=== PATIENT | female | born 1960 | race Caucasian/White ===

== ENCOUNTER → 2016-10-09 | Outpatient (CLI) | payer OTHER, SELFPAY ==
[~2016-10-09] MED LIST: /AUGM875TA OR; /HCTZ25TA PO; ACET50TA PO; BACT800T5 PO; BACTDSTA PO; COLA50CA3 PO; HYDR25TA6 OR; HYDR25TAB PO; IBUP400T OR; IBUPOTC PO; LASI20TA PO; LISI40TAB PO; MICR10CA PO; MUPI2OI EXT; PERCOCET PO; TENO25TA PO; ZANTTAB PO; ZEST20TA8 PO; [UNRECOGNIZED DRUG - CODE] EXT; [UNRECOGNIZED DRUG - CODE] IV
--- NOTE | 2016-10-11 18:24 | SLEEPHOME ---
DATE OF STUDY: 10/09/2016 ORDERED BY: Brianna Flood Diagnostic home sleep testing ws performed due to concern for the obstructive sleep apnea syndrome in this patient with a history of excessive somnolence and comorbidities of hypertension. For testing a NOX-T3 respiratory monitoring device was utilized. Continuous record was made of pulse, oxygen saturation, air flow, chest and abdominal strain and body position. 7 hours and 59 minutes of data were reviewed. Of these, 5 hours and 13 minutes were marked as time in bed. During the interval marked time in bed there were 174 respiratory events identified of 10 seconds in duration or greater for a respiratory event index of 33.3. The events were primarily obstructive but mixed in central apneas were also seen. Baseline heart rate was 86 beats per minute. Pulse rate ranged 64 to 109 beats per minute. Baseline saturation 89%. Lowest oxygen saturation is 64%. Testing was performed in both the supine and non-supine positions. IMPRESSION: Abnormal home sleep testing with repetitive respirator events and oxygen desaturations to 64% with a respiratory event index of 33.3, is consistent with severe obstructive sleep apnea syndrome. RECOMMENDATION: The patient should be referred for formal sleep evaluation with in laboratory pressure titration.
== END ==
LOC: M SLEEP HO 09:42
PROVIDERS: ATTEND Nurse Practitioner Adult Health
DX: G47.30 Sleep apnea, unspecified (principal)

== ENCOUNTER → 2016-11-05 | Outpatient (REF) | payer SELFPAY, OTHER | LOC: M LAB REF 09:55 | PROVIDERS: ATTEND Physician Assistant Medical | DX: B97.89 Other viral agents as the cause of diseases classified elsewhere (principal) ==

== ENCOUNTER 2016-11-08 05:36 | Emergency (ER) | payer OTHER, SELFPAY ==
[2016-11-08] MEDS ORDERED: ONDANSETRON 4 MG ORAL DISINTEGRATING TAB (S0181) As Ordered ONE (07:30)
[2016-11-08] MEDS ORDERED: ALBUTEROL SULFATE 2.5 MG/0.5 ML INH NEB SOLN As Ordered ONE (07:45)
--- NOTE | 2016-11-08 08:05 | REP ---
PA and lateral chest: Comparison is 05/18/2016. A huge hiatal hernia containing multiple air-fluid levels is again identified. Lung harris are clear. Cardiac size is mildly enlarged. The hari, mediastinum, and bony thorax are unremarkable. Signed by Watson Kenny MD 11/08/2016 07:56 A
--- NOTE | 2016-11-08 08:33 | EDDOCDS ---
Nurse's Notes [facility] Name: Heidy Bolivar Age: 56 yrs Sex: Female : 1960 Arrival Date: 11/08/2016 Time: 05:36 Bed 7 Private MD: Diagnosis: Nausea;Influenza due to unidentified influenza virus-POSITIVE AT PRIOR URGENT CARE VISIT;Cough;Myalgia Presentation: 11/08 05:43 Presenting complaint: Patient states: dx with flu at urgent care, reports not feeling af2 any better, generalized body aches. Suicide/Homicide risk assessment- the patient denies having any suicidal and/or homicidal ideations and does not present with any other emotional, behavioral or mental health complaints. Status: Patient is not a extension service supervisor or dependent. Transition of care: patient was not received from another setting of care. 05:43 Acuity: MELL Level 4 af2 05:43 Method Of Arrival: Walkin/Carried/Asstd af2 Triage Assessment: 05:46 General: Appears in no apparent distress, Behavior is cooperative. Pain: Location: af2 generalized Pain currently is 7 out of 10 on a pain scale. Pt Declines HIV testing. Respiratory: Airway is patent Respiratory effort is even, unlabored. Derm: Skin is normal. Historical: - Allergies: No known drug Allergies; - Home Meds: 1. hydrochlorothiazide 25 mg Oral tab 1 tab once daily 2. lisinopril 40 mg oral tab 1 tab once daily 3. ibuprofen 400 mg Oral tab 2 tabs 4 times per day 4. Augmentin 875-125 mg Oral tab 1 tab every 12 hours 5. omeprazole 20 mg Oral TbEC daily - PMHx: Endometriosis; Hypertension; - PSHx: ; - Social history: Smoking status: Patient states was never smoker of tobacco. No barriers to communication noted, The patient speaks fluent Albanian. - Family history: Not pertinent. - : The pt / caregiver states he / she is not on anticoagulants. Home medication list is obtained from the patient. - Exposure Risk Screening:: None identified. Screenin:13 Screening information is obtained from the patient. Fall risk: No risks identified. jmk Assistance ADL's: requires no assistance with activities of daily living. Abuse/DV Screen: The patient / caregiver reports he/she is: not in a situation that causes fear, pain or injury. Nutritional screening: No deficits noted. Advance Directives: Currently, there is There is no active DNR order. There is no living will. There is no Power of Bill Board Poster. Advance directive information has not previously been placed in an [facility] medical record. home support is adequate. Assessment: 07:10 General: Appears SKIN WARM AND DRY COLOR SATISFACTORY. MOIST PINK ORAL MUCOSA. WITHOUT jmk RESP DISTRESS. CHEST cta. + NASAL CONGESTION. overall body aches. Vital Signs: 05:46 BP 104 / 61 RA Sitting (auto/); Pulse 90; Resp 18 S; Temp 98.2(TE); Pulse Ox 95% on af2 R/A; Weight 117.93 kg (R); Height 5 ft. 3 in. (160.02 cm) (R); Pain 7/10; 08:27 BP 110 / 61; Pulse 88; Resp 16; Temp 98.3; Pulse Ox 98% ; jmk 05:46 Body Mass Index 46.06 (117.93 kg, 160.02 cm) af2 Vitals: 05:46 Log In Time: November 08, 2016 at 05:36. af2 ED Course: 05:37 Patient visited by Juliann Walter Reg. hs2 05:37 Patient moved to Waiting hs2 05:42 Patient moved to Triage 1 af2 05:43 Dori Ayala RN is Primary Nurse. kas2 05:43 Triage Initiated af2 05:48 Patient visited by Cintia Marshall RN. af2 05:48 Patient moved to Waiting af2 07:03 Kelly Pena RN is Primary Nurse. nb2 07:03 Patient moved to 7 nb2 07:12 Shani Lee PA-C is PHCP. dt4 07:12 Barbara Aceves MD is Attending Physician. dt4 07:12 Patient visited by Shani Lee PA-C. dt4 07:13 The patient / caregiver is instructed regarding the plan of care and ED course. jmk 07:14 Patient visited by Joselo Maldonado RN. jmk 08:05 Primary Nurse role handed off by Kelly Pena RN mlb1 08:05 Primary Nurse role handed off by Dori Ayala RN mlb1 08:12 Patient visited by Shani Lee PA-C. dt4 08:14 [facility] is Referral Physician. dt4 08:27 No IV's were initiated during this patient's visit. No procedures done that require k assistance. Administered Medications: 07:32 Drug: Ondansetron ODT 4 mg [ondansetron 4 mg disintegrating tablet (1 tabs)] Route: PO; jmk 07:59 Drug: Albuterol 2.5 mg [albuterol sulfate 2.5 mg/0.5 mL solution for nebulization (0.5 ac1 mL)] Route: Nebulizer; 08:00 Follow up: PT HAYLIE PROCEDURE WELL. BS-AUDABLE WHEEZING BEFORE AND AFTER TX. HARSH ASSISTANT FINANCE MANAGER ac1 COUGH. Intake: RT: 08:01 Initial Med Neb Given as ordered Patient was instructed and evaluated on procedure. ac1 08:04 Respiratory: Breath sounds with wheezes bilaterally. ac1 Order Results: There are currently no results for this order. Outcome: 08:15 Discharge ordered by Provider. dt4 08:27 Discharge Assessment: Patient awake, alert and oriented x 3. No cognitive and/or k functional deficits noted. Patient verbalized understanding of disposition instructions. patient administered narcotics - no. The following High Risk Discharge criteria are identified: None. Condition: good. Discharge instructions given to patient, Instructed on discharge instructions, follow up and referral plans. Demonstrated understanding of instructions, medications, Pt was receptive of discharge instructions/ teaching. Prescriptions given X 2. No special radiology studies were completed. Property :Personal belongings accompany Pt. 08:31 [facility] Signatures: Joselo Maldonado,RN ALLY camposk Shila Cee,RT RT ac1 Kiran Arita RN RN mlb1 Shani Lee, PA-C PA-C dt4 Cintia Marshall,RN RN af2 Juliann Walter, Reg Reg hs2 Dori AyalaRN RN kas2 Sue Graham2 MTDD
--- NOTE | 2016-11-08 08:33 | EDDOCDS ---
Physician Documentation [facility] Name: Heidy Bolivar Age: 56 yrs Sex: Female : 1960 Arrival Date: 11/08/2016 Time: 05:36 Bed 7 Private MD: Disposition: 11/08/16 08:15 Discharged to Home/Self Care. Impression: Nausea, Influenza due to unidentified influenza virus - POSITIVE AT PRIOR URGENT CARE VISIT, Cough, Myalgia. - Condition is Stable. - Discharge Instructions: Influenza Adult, Nausea, Adult, Cough, Adult. - Prescriptions for guaifenesin 100 mg/5 mL Oral liquid - take 10 milliliter by ORAL route every 4-6 hours As needed as needed; 120 milliliter. ZOFRAN ODT 4 mg Oral - dissolve 1 tablet by ORAL route 3-4 times daily As needed do not chew, do not swallow whole; 20 tablet. - Medication Reconciliation, Local Pharmacy Hours form. - Follow up: Emergency Department; When: As needed; Reason: Worsening of conditions. [facility]: [facility]; When: Call to arrange an appointment; Reason: Recheck today's complaints, Continuance of care, To establish care. - Problem is new. - Symptoms have improved. Historical: - Allergies: No known drug Allergies; - Home Meds: 1. hydrochlorothiazide 25 mg Oral tab 1 tab once daily 2. lisinopril 40 mg oral tab 1 tab once daily 3. ibuprofen 400 mg Oral tab 2 tabs 4 times per day 4. Augmentin 875-125 mg Oral tab 1 tab every 12 hours 5. omeprazole 20 mg Oral TbEC daily - PMHx: Endometriosis; Hypertension; - PSHx: ; - Social history: Smoking status: Patient states was never smoker of tobacco. No barriers to communication noted, The patient speaks fluent Latvian. - Family history: Not pertinent. - : The pt / caregiver states he / she is not on anticoagulants. Home medication list is obtained from the patient. - Exposure Risk Screening:: None identified. Vital Signs: 11/08 05:46 BP 104 / 61 RA Sitting (auto/); Pulse 90; Resp 18 S; Temp 98.2(TE); Pulse Ox 95% on af2 R/A; Weight 117.93 kg / 259.99 lbs (R); Height 5 ft. 3 in. (160.02 cm) (R); Pain 7/10; 08:27 BP 110 / 61; Pulse 88; Resp 16; Temp 98.3; Pulse Ox 98% ; jmk 05:46 Body Mass Index 46.06 (117.93 kg, 160.02 cm) af2 MDM: 07:24 Albuterol 2.5 mg Nebulizer once ordered. dt4 07:24 Call Respiratory ordered. dt4 07:24 Ondansetron ODT Oral Disintegrating Tablet 4 mg PO once ordered. dt4 07:24 Call Respiratory complete. jrd 07:24 ED course: PT STATES NO FLU VACCINE THIS SEASON. BEGAN FEELING ILL ON 11/03/16, WENT TO [facility]4 URGENT CARE AND TESTED POSITIVE FOR FLU. STATES TOOK TAMIFLU AND NOT FEELING ANY RELIEF. STATES HAS BEEN MISSING WORK BECAUSE OF GENERAL BODY ACHES, NAUSEA, DECREASED APPETITE. . 07:25 Chest, 2 View (pa\E\lat) Ordered. EDMS 07:52 Financial registration complete. mm15 08:12 ED course: PT ASKED IF SHE SHOULD CONTINUE TAKING THE MEDICATION URGENT CARE PRESCRIBED dt4 HER FOR THE FLU. SHOWS A BOTTLE OF AUGMENTIN, STATES SHE IS SUPPOSED TO TAKE THIS FOR 10 DAYS. ADVISED THIS IS NOT HELPFUL FOR THE FLU AND MAY BE ADDING TO HER NAUSEA. ADVISED TO STOP TAKING IT. PT STATES SHE BROUGHT THE WRONG BOTTLE AND THERE IS ANOTHER ONE AT HOME. ADVISED IF IT IS FOR TAMIFLU, IT IS TYPICALLY WRITTEN FOR 5 DAYS AND SHE SHOULD HAVE COMPLETED IT YESTERDAY. PT VOICED UNDERSTANDING. . Administered Medications: 07:32 Drug: Ondansetron ODT 4 mg [ondansetron 4 mg disintegrating tablet (1 tabs)] Route: PO; joann 07:59 Drug: Albuterol 2.5 mg [albuterol sulfate 2.5 mg/0.5 mL solution for nebulization (0.5 ac1 mL)] Route: Nebulizer; 08:00 Follow up: PT HAYLIE PROCEDURE WELL. BS-AUDABLE WHEEZING BEFORE AND AFTER TX. HARSH ERP IMPLEMENTATION CONSULTANT ac1 COUGH. Signatures: Dispatcher [employer] EDMS Joselo Maldonado,ALLY RN Shawna Mariano mm15 Shani Lee, PA-C PA-C dt4 Delmar Nguyễn, WAREHOUSE SUPERVISOR WAREHOUSE SUPERVISOR d Cintia Marshall RN RN af2 Jaye, Shila RT ac1 MTDD
--- NOTE | 2016-11-10 09:32 | EDDOCDS ---
Physician Documentation [facility] Name: Heidy Bolivar Age: 56 yrs Sex: Female : 1960 Arrival Date: 11/08/2016 Time: 05:36 Bed 7 Private MD: Disposition: 11/08/16 08:15 Discharged to Home/Self Care. Impression: Nausea, Influenza due to unidentified influenza virus - POSITIVE AT PRIOR URGENT CARE VISIT, Cough, Myalgia. - Condition is Stable. - Discharge Instructions: Influenza Adult, Nausea, Adult, Cough, Adult. - Prescriptions for guaifenesin 100 mg/5 mL Oral liquid - take 10 milliliter by ORAL route every 4-6 hours As needed as needed; 120 milliliter. ZOFRAN ODT 4 mg Oral - dissolve 1 tablet by ORAL route 3-4 times daily As needed do not chew, do not swallow whole; 20 tablet. - Medication Reconciliation, Local Pharmacy Hours form. - Follow up: Emergency Department; When: As needed; Reason: Worsening of conditions. Follow [facility]: [facility]; When: Call to arrange an appointment; Reason: Recheck today's complaints, Continuance of care, To establish care. - Problem is new. - Symptoms have improved. Historical: - Allergies: No known drug Allergies; - Home Meds: 1. hydrochlorothiazide 25 mg Oral tab 1 tab once daily 2. lisinopril 40 mg oral tab 1 tab once daily 3. ibuprofen 400 mg Oral tab 2 tabs 4 times per day 4. Augmentin 875-125 mg Oral tab 1 tab every 12 hours 5. omeprazole 20 mg Oral TbEC daily - PMHx: Endometriosis; Hypertension; - PSHx: ; - Social history: Smoking status: Patient states was never smoker of tobacco. No barriers to communication noted, The patient speaks fluent [place] Citizen. - Family history: Not pertinent. - : The pt / caregiver states he / she is not on anticoagulants. Home medication list is obtained from the patient. - Exposure Risk Screening:: None identified. Vital Signs: 11/08 05:46 BP 104 / 61 RA Sitting (auto/); Pulse 90; Resp 18 S; Temp 98.2(TE); Pulse Ox 95% on af2 R/A; Weight 117.93 kg / 259.99 lbs (R); Height 5 ft. 3 in. (160.02 cm) (R); Pain 7/10; 08:27 BP 110 / 61; Pulse 88; Resp 16; Temp 98.3; Pulse Ox 98% ; jmk 05:46 Body Mass Index 46.06 (117.93 kg, 160.02 cm) af2 MDM: 07:24 Albuterol 2.5 mg Nebulizer once ordered. dt4 07:24 Call Respiratory ordered. dt4 07:24 Ondansetron ODT Oral Disintegrating Tablet 4 mg PO once ordered. dt4 07:24 Call Respiratory complete. jrd 07:24 ED course: PT STATES NO FLU VACCINE THIS SEASON. BEGAN FEELING ILL ON 11/03/16, WENT TO dt4 URGENT CARE AND TESTED POSITIVE FOR FLU. STATES TOOK TAMIFLU AND NOT FEELING ANY RELIEF. STATES HAS BEEN MISSING WORK BECAUSE OF GENERAL BODY ACHES, NAUSEA, DECREASED APPETITE. . 07:25 Chest, 2 View (pa\E\lat) Ordered. EDMS 07:52 Financial registration complete. mm15 08:12 ED course: PT ASKED IF SHE SHOULD CONTINUE TAKING THE MEDICATION URGENT CARE PRESCRIBED dt4 HER FOR THE FLU. SHOWS A BOTTLE OF AUGMENTIN, STATES SHE IS SUPPOSED TO TAKE THIS FOR 10 DAYS. ADVISED THIS IS NOT HELPFUL FOR THE FLU AND MAY BE ADDING TO HER NAUSEA. ADVISED TO STOP TAKING IT. PT STATES SHE BROUGHT THE WRONG BOTTLE AND THERE IS ANOTHER ONE AT HOME. ADVISED IF IT IS FOR TAMIFLU, IT IS TYPICALLY WRITTEN FOR 5 DAYS AND SHE SHOULD HAVE COMPLETED IT YESTERDAY. PT VOICED UNDERSTANDING. . 08:35 [facility] Payment Agreement was scanned into [employer] and attached to record. mm15 11/10 08:24 T-Sheet-- Draft Copy was scanned into [employer] and attached to record. lg 08:25 Radiology Report was scanned into [employer] and attached to record. lg Administered Medications: 11/08 07:32 Drug: Ondansetron ODT 4 mg [ondansetron 4 mg disintegrating tablet (1 tabs)] Route: PO; jmk 07:59 Drug: Albuterol 2.5 mg [albuterol sulfate 2.5 mg/0.5 mL solution for nebulization (0.5 ac1 mL)] Route: Nebulizer; 08:00 Follow up: PT HAYLIE PROCEDURE WELL. BS-AUDABLE WHEEZING BEFORE AND AFTER TX. HARSH JUNIOR PROGRAMMER ac1 COUGH. Signatures: Dispatcher [employer] EDJoselo Abraham,RN RN bethk Jeremias Jaffe, Andre Reg lg Shawna Park mm15 Shani Lee PA-C PA-C dt4 Delmar Nguyễn, SIM FACIALIST jrd Cintia MarshallRN RN af2 Shila Cee RT ac1 The chart was reviewed and I authenticate all verbal orders and agree with the evaluation and treatment provided.Attachments: 08:35 [facility] Payment Agreement mm15 11/10 08:24 T-Sheet-- Draft Copy lg Chart Complete MTDD
--- NOTE | 2016-11-10 09:32 | EDDOCDS ---
Physician Documentation [facility] Name: Heidy Bolivar Age: 56 yrs Sex: Female : 1960 Arrival Date: 11/08/2016 Time: 05:36 Bed 7 Private MD: Disposition: 11/08/16 08:15 Discharged to Home/Self Care. Impression: Nausea, Influenza due to unidentified influenza virus - POSITIVE AT PRIOR URGENT CARE VISIT, Cough, Myalgia. - Condition is Stable. - Discharge Instructions: Influenza Adult, Nausea, Adult, Cough, Adult. - Prescriptions for guaifenesin 100 mg/5 mL Oral liquid - take 10 milliliter by ORAL route every 4-6 hours As needed as needed; 120 milliliter. ZOFRAN ODT 4 mg Oral - dissolve 1 tablet by ORAL route 3-4 times daily As needed do not chew, do not swallow whole; 20 tablet. - Medication Reconciliation, Local Pharmacy Hours form. - Follow up: Emergency Department; When: As needed; Reason: Worsening of conditions. Follow [facility]: [facility]; When: Call to arrange an appointment; Reason: Recheck today's complaints, Continuance of care, To establish care. - Problem is new. - Symptoms have improved. Historical: - Allergies: No known drug Allergies; - Home Meds: 1. hydrochlorothiazide 25 mg Oral tab 1 tab once daily 2. lisinopril 40 mg oral tab 1 tab once daily 3. ibuprofen 400 mg Oral tab 2 tabs 4 times per day 4. Augmentin 875-125 mg Oral tab 1 tab every 12 hours 5. omeprazole 20 mg Oral TbEC daily - PMHx: Endometriosis; Hypertension; - PSHx: ; - Social history: Smoking status: Patient states was never smoker of tobacco. No barriers to communication noted, The patient speaks fluent Thai. - Family history: Not pertinent. - : The pt / caregiver states he / she is not on anticoagulants. Home medication list is obtained from the patient. - Exposure Risk Screening:: None identified. Vital Signs: 11/08 05:46 BP 104 / 61 RA Sitting (auto/); Pulse 90; Resp 18 S; Temp 98.2(TE); Pulse Ox 95% on af2 R/A; Weight 117.93 kg / 259.99 lbs (R); Height 5 ft. 3 in. (160.02 cm) (R); Pain 7/10; 08:27 BP 110 / 61; Pulse 88; Resp 16; Temp 98.3; Pulse Ox 98% ; jmk 05:46 Body Mass Index 46.06 (117.93 kg, 160.02 cm) af2 MDM: 07:24 Albuterol 2.5 mg Nebulizer once ordered. dt4 07:24 Call Respiratory ordered. dt4 07:24 Ondansetron ODT Oral Disintegrating Tablet 4 mg PO once ordered. dt4 07:24 Call Respiratory complete. jrd 07:24 ED course: PT STATES NO FLU VACCINE THIS SEASON. BEGAN FEELING ILL ON 11/03/16, WENT TO dt4 URGENT CARE AND TESTED POSITIVE FOR FLU. STATES TOOK TAMIFLU AND NOT FEELING ANY RELIEF. STATES HAS BEEN MISSING WORK BECAUSE OF GENERAL BODY ACHES, NAUSEA, DECREASED APPETITE. . 07:25 Chest, 2 View (pa\E\lat) Ordered. EDMS 07:52 Financial registration complete. mm15 08:12 ED course: PT ASKED IF SHE SHOULD CONTINUE TAKING THE MEDICATION URGENT CARE PRESCRIBED dt4 HER FOR THE FLU. SHOWS A BOTTLE OF AUGMENTIN, STATES SHE IS SUPPOSED TO TAKE THIS FOR 10 DAYS. ADVISED THIS IS NOT HELPFUL FOR THE FLU AND MAY BE ADDING TO HER NAUSEA. ADVISED TO STOP TAKING IT. PT STATES SHE BROUGHT THE WRONG BOTTLE AND THERE IS ANOTHER ONE AT HOME. ADVISED IF IT IS FOR TAMIFLU, IT IS TYPICALLY WRITTEN FOR 5 DAYS AND SHE SHOULD HAVE COMPLETED IT YESTERDAY. PT VOICED UNDERSTANDING. . 08:35 [facility] Payment Agreement was scanned into [employer] and attached to record. mm15 11/10 08:24 T-Sheet-- Draft Copy was scanned into [employer] and attached to record. lg 08:25 Radiology Report was scanned into [employer] and attached to record. lg Administered Medications: 11/08 07:32 Drug: Ondansetron ODT 4 mg [ondansetron 4 mg disintegrating tablet (1 tabs)] Route: PO; jmk 07:59 Drug: Albuterol 2.5 mg [albuterol sulfate 2.5 mg/0.5 mL solution for nebulization (0.5 ac1 mL)] Route: Nebulizer; 08:00 Follow up: PT HAYLIE PROCEDURE WELL. BS-AUDABLE WHEEZING BEFORE AND AFTER TX. HARSH ELECTRONICS ENGINEERING MANAGER ac1 COUGH. Signatures: Dispatcher [employer] EDJoselo Abraham,RN RN bethk Jeremias Jaffe, Andre Reg lg Shawna Park mm15 Shani Lee PA-C PA-C dt4 Delmar Nguyễn, SIM SOFTWARE APPLICATION TESTER jrd Cintia MarshallRN RN af2 Shila Cee RT ac1 The chart was reviewed and I authenticate all verbal orders and agree with the evaluation and treatment provided.Attachments: 08:35 [facility] Payment Agreement mm15 11/10 08:24 T-Sheet-- Draft Copy lg Chart Complete MTDD
--- NOTE | 2016-11-10 09:33 | EDDOCDS ---
Nurse's Notes [facility] Name: Heidy Bolivar Age: 56 yrs Sex: Female : 1960 Arrival Date: 11/08/2016 Time: 05:36 Bed 7 Private MD: Diagnosis: Nausea;Influenza due to unidentified influenza virus-POSITIVE AT PRIOR URGENT CARE VISIT;Cough;Myalgia Presentation: 11/08 05:43 Presenting complaint: Patient states: dx with flu at urgent care, reports not feeling af2 any better, generalized body aches. Suicide/Homicide risk assessment- the patient denies having any suicidal and/or homicidal ideations and does not present with any other emotional, behavioral or mental health complaints. Status: Patient is not a senior professional services consultant or dependent. Transition of care: patient was not received from another setting of care. 05:43 Acuity: MELL Level 4 af2 05:43 Method Of Arrival: Walkin/Carried/Asstd af2 Triage Assessment: 05:46 General: Appears in no apparent distress, Behavior is cooperative. Pain: Location: af2 generalized Pain currently is 7 out of 10 on a pain scale. Pt Declines HIV testing. Respiratory: Airway is patent Respiratory effort is even, unlabored. Derm: Skin is normal. Historical: - Allergies: No known drug Allergies; - Home Meds: 1. hydrochlorothiazide 25 mg Oral tab 1 tab once daily 2. lisinopril 40 mg oral tab 1 tab once daily 3. ibuprofen 400 mg Oral tab 2 tabs 4 times per day 4. Augmentin 875-125 mg Oral tab 1 tab every 12 hours 5. omeprazole 20 mg Oral TbEC daily - PMHx: Endometriosis; Hypertension; - PSHx: ; - Social history: Smoking status: Patient states was never smoker of tobacco. No barriers to communication noted, The patient speaks fluent Slovak. - Family history: Not pertinent. - : The pt / caregiver states he / she is not on anticoagulants. Home medication list is obtained from the patient. - Exposure Risk Screening:: None identified. Screenin:13 Screening information is obtained from the patient. Fall risk: No risks identified. jmk Assistance ADL's: requires no assistance with activities of daily living. Abuse/DV Screen: The patient / caregiver reports he/she is: not in a situation that causes fear, pain or injury. Nutritional screening: No deficits noted. Advance Directives: Currently, there is There is no active DNR order. There is no living will. There is no Power of Computer Tape Librarian. Advance directive information has not previously been placed in an [facility] medical record. home support is adequate. Assessment: 07:10 General: Appears SKIN WARM AND DRY COLOR SATISFACTORY. MOIST PINK ORAL MUCOSA. WITHOUT jmk RESP DISTRESS. CHEST cta. + NASAL CONGESTION. overall body aches. Vital Signs: 05:46 BP 104 / 61 RA Sitting (auto/); Pulse 90; Resp 18 S; Temp 98.2(TE); Pulse Ox 95% on af2 R/A; Weight 117.93 kg (R); Height 5 ft. 3 in. (160.02 cm) (R); Pain 7/10; 08:27 BP 110 / 61; Pulse 88; Resp 16; Temp 98.3; Pulse Ox 98% ; jmk 05:46 Body Mass Index 46.06 (117.93 kg, 160.02 cm) af2 Vitals: 05:46 Log In Time: November 08, 2016 at 05:36. af2 ED Course: 05:37 Patient visited by Juliann Walter Reg. hs2 05:37 Patient moved to Waiting hs2 05:42 Patient moved to Triage 1 af2 05:43 Dori Ayala RN is Primary Nurse. kas2 05:43 Triage Initiated af2 05:48 Patient visited by Cintia Marshall RN. af2 05:48 Patient moved to Waiting af2 07:03 Kelly Pena RN is Primary Nurse. nb2 07:03 Patient moved to 7 nb2 07:12 Shani Lee PA-C is PHCP. dt4 07:12 Barbara Aceves MD is Attending Physician. dt4 07:12 Patient visited by Shani Lee PA-C. dt4 07:13 The patient / caregiver is instructed regarding the plan of care and ED course. jmk 07:14 Patient visited by Joselo Maldonado RN. jmk 08:05 Primary Nurse role handed off by Kelly Pena RN mlb1 08:05 Primary Nurse role handed off by Dori Ayala RN mlb1 08:12 Patient visited by Shani Lee PA-C. dt4 08:14 [facility] is Referral Physician. dt4 08:27 No IV's were initiated during this patient's visit. No procedures done that require jmk assistance. 08:35 [facility] Payment Agreement was scanned into [employer] and attached to record. mm15 08:44 Chest, 2 View (pa\E\lat) Returned. EDMS 11/10 08:24 T-Sheet-- Draft Copy was scanned into [employer] and attached to record. lg 08:25 Radiology Report was scanned into [employer] and attached to record. lg Administered Medications: 11/08 07:32 Drug: Ondansetron ODT 4 mg [ondansetron 4 mg disintegrating tablet (1 tabs)] Route: PO; jmk 07:59 Drug: Albuterol 2.5 mg [albuterol sulfate 2.5 mg/0.5 mL solution for nebulization (0.5 ac1 mL)] Route: Nebulizer; 08:00 Follow up: PT HAYLIE PROCEDURE WELL. BS-AUDABLE WHEEZING BEFORE AND AFTER TX. [employer] MAINTENANCE ENGINEER ac1 COUGH. Intake: RT: 08:01 Initial Med Neb Given as ordered Patient was instructed and evaluated on procedure. ac1 08:04 Respiratory: Breath sounds with wheezes bilaterally. ac1 Order Results: Radiology Order: Chest, 2 View (pa\E\lat) Test: Chest, 2 View (pa\E\lat) REASON FOR EXAMINATION: pos flu, cough, wheezing; PA and lateral chest:; ; Comparison is 05/18/2016.; ; A huge hiatal hernia containing multiple air-fluid levels is again identified.; ; Lung harris are clear. Cardiac size is mildly enlarged. The hari, mediastinum,; and bony thorax are unremarkable.; ; ; Signed by; Watson Kenny MD 11/08/2016 07:56 A; Outcome: 08:15 Discharge ordered by Provider. dt4 08:27 Discharge Assessment: Patient awake, alert and oriented x 3. No cognitive and/or jmk functional deficits noted. Patient verbalized understanding of disposition instructions. patient administered narcotics - no. The following High Risk Discharge criteria are identified: None. Condition: good. Discharge instructions given to patient, Instructed on discharge instructions, follow up and referral plans. Demonstrated understanding of instructions, medications, Pt was receptive of discharge instructions/ teaching. Prescriptions given X 2. No special radiology studies were completed. Property :Personal belongings accompany Pt. 08:31 Patient left the ED. ramesh Signatures: Dispatcher [employer] EDMS Joselo Maldonado,RN RN Jeremias Santa, Reg Reg lg Shila Cee,RT RT ac1 Kiran Arita RN RN mlb1 Shawna Park mm15 Shani Lee, PA-C PA-C dt4 Cintia MarshallRN RN af2 Juliann Walter, Reg Reg hs2 Dori Ayala RN RN kas2 Sue Graham nb2 Chart Complete MTDD
== END 2016-11-08 08:31 | disposition home or self-care (01) ==
LOC: M ED 05:36
DX: J11.1 Influenza due to unidentified influenza virus with other respiratory manifestations (principal); M79.1 Myalgia; R05 Cough; R11.0 Nausea; N80.9 Endometriosis, unspecified; I10 Essential (primary) hypertension; Z79.899 Other long term (current) drug therapy

== ENCOUNTER → 2018-01-04 | Outpatient (CLI) | payer OTHER | LOC: M RAD 10:43 | DX: I10 Essential (primary) hypertension (principal) | CPT/HCPCS: 76775 ==

== ENCOUNTER → 2018-01-29 | Outpatient (CLI) | payer OTHER | LOC: M WHC 08:45 | DX: Z12.31 Encounter for screening mammogram for malignant neoplasm of breast (principal); Z80.3 Family history of malignant neoplasm of breast; Z78.0 Asymptomatic menopausal state | CPT/HCPCS: 77067 ==

== ENCOUNTER 2018-02-17 16:03 | Inpatient (IN) | payer OTHER ==
[2018-02-17 16:54] LABS: BASO % 0.5 % (0.0-1.0); EOS # 0.2 10^3/uL (0.0-0.50); EOS % 2.3 % (0.0-3.0); HEMATOCRIT 41.4 % (36.0-47.0); HEMOGLOBIN 13.4 g/dl (12.0-15.5); IMMATURE GRANULOCYTE % 0.4 % (0-3.0); LYMPH # 2.1 10^3/uL (1.5-4.5); LYMPH % 28.1 % (24.0-44.0); MEAN CORPUSCULAR HEMOGLOBIN 28.3 pg (27.0-33.0); MEAN CORPUSCULAR HGB CONC 32.4 g/dl (32.0-36.5); MEAN CORPUSCULAR VOLUME 87.3 fl (80.0-96.0); MONO # 0.5 10^3/uL (0.0-0.8); MONO % 6.8 % (0.0-5.0); NEUTROPHILS # 4.5 10^3/uL (1.8-7.7); NEUTROPHILS % 61.9 % (36.0-66.0); PLATELET COUNT, AUTOMATED 316 10^3/uL (150-450); RED BLOOD COUNT 4.74 10^6/uL (4.00-5.40); RED CELL DISTRIBUTION WIDTH 13.2 % (11.5-14.5); WHITE BLOOD COUNT 7.3 10^3/uL (4.0-10.0)
[2018-02-17 17:01] LABS: INR 0.88
[2018-02-17 17:02] LABS: PARTIAL THROMBOPLASTIN TIME 29.2 SECONDS (26.8-37.9)
[2018-02-17 17:15] LABS: ANION GAP 6 MEQ/L (8-16); BLOOD UREA NITROGEN 22 MG/DL (7-18); CALCIUM LEVEL 8.7 MG/DL (8.5-10.1); CARBON DIOXIDE LEVEL 33 MEQ/L (21-32); CHLORIDE LEVEL 102 MEQ/L (98-107); CPK CREATINE PHOSPHOKINASE 189 U/L (26-192); CREATININE FOR GFR 0.86 MG/DL (0.55-1.30); FREE T4 0.86 NG/DL (0.76-1.46); GLOMERULAR FILTRATION RATE > 60.0 (>51); GLUCOSE, FASTING 117 MG/DL (70-100); PHOSPHORUS LEVEL 3.2 MG/DL (2.5-4.9); POTASSIUM SERUM 3.3 MEQ/L (3.5-5.1); SODIUM LEVEL 141 MEQ/L (136-145); TROPONIN I < 0.02 NG/ML (< 0.10)
[2018-02-17 17:21] LABS: CK-MB VALUE MASS 4.2 NG/ML (<3.6); MB/CK RELATIVE INDEX 2.22 (< OR =4)
[2018-02-17] MEDS: POTASSIUM CHLORIDE 10 MEQ SR TABLET PO (17:38)
[2018-02-17] MEDS: ASPIRIN 325 MG TAB PO (18:11)
[2018-02-17] MEDS ORDERED: ONDANSETRON 4MG/2ML VIAL (J2405) IV (19:00)
[2018-02-17 19:55] LABS: MAGNESIUM LEVEL 2.1 MG/DL (1.8-2.4)
[2018-02-17 20:22] LABS: ESTIMATED AVERAGE GLUCOSE 131 MG/DL (60-110); HEMOGLOBIN A1c 6.2 %
[2018-02-18 05:28] LABS: HEMATOCRIT 38.8 % (36.0-47.0); HEMOGLOBIN 12.6 g/dl (12.0-15.5); MEAN CORPUSCULAR HEMOGLOBIN 28.3 pg (27.0-33.0); MEAN CORPUSCULAR HGB CONC 32.5 g/dl (32.0-36.5); MEAN CORPUSCULAR VOLUME 87.2 fl (80.0-96.0); PLATELET COUNT, AUTOMATED 268 10^3/uL (150-450); RED BLOOD COUNT 4.45 10^6/uL (4.00-5.40); RED CELL DISTRIBUTION WIDTH 13.2 % (11.5-14.5); WHITE BLOOD COUNT 4.7 10^3/uL (4.0-10.0)
[2018-02-18 06:06] LABS: ALBUMIN 3.1 GM/DL (3.2-5.2); ANION GAP 6 MEQ/L (8-16); BLOOD UREA NITROGEN 19 MG/DL (7-18); CALCIUM LEVEL 8.5 MG/DL (8.5-10.1); CARBON DIOXIDE LEVEL 29 MEQ/L (21-32); CHLORIDE LEVEL 106 MEQ/L (98-107); CHOLESTEROL LEVEL 187 MG/DL (<200); CHOLESTEROL RISK RATIO 2.397 (<5); CREATININE FOR GFR 0.64 MG/DL (0.55-1.30); GLOMERULAR FILTRATION RATE > 60.0 (>51); GLUCOSE, FASTING 97 MG/DL (70-100); HDL CHOLESTEROL 78 MG/DL (>40); LDL CHOLESTEROL 92.2 MG/DL (<100); NON-HDL-C 109 MG/DL; PHOSPHORUS LEVEL 3.3 MG/DL (2.5-4.9); POTASSIUM SERUM 3.6 MEQ/L (3.5-5.1); SODIUM LEVEL 141 MEQ/L (136-145); TRIGLYCERIDES LEVEL 84 MG/DL (<150)
[2018-02-18] MEDS: ASPIRIN 81 MG ENTERIC TAB PO (06:11)
[2018-02-18] MEDS: ENOXAPARIN 40 MG/0.4 ML SYRINGE (J1650) SC (09:03)
[2018-02-18] MEDS: ACETAMINOPHEN TAB 650MG DOSE (2X325MG) PO (09:03)
[2018-02-18] MEDS: SPIRONOLACTONE 25 MG TAB PO (09:04)
[2018-02-18] MEDS: hydroCHLOROthiazide 25 MG TAB PO (09:04)
[2018-02-18] MEDS: amLODIPine 5 MG TAB PO (09:07)
[2018-02-18] MEDS: IBUPROFEN 800 MG TAB PO (10:44)
[2018-02-20 00:07] LABS: Lyme Disease IgG/IgM Antibodie <0.91 ISR (0.00-0.90); Lyme Disease IgM Ab Quantitati <0.80 index (0.00-0.79)
== END 2018-02-18 16:03 | disposition home or self-care (01) | DRG 47 ==
LOC: M ED 16:03 → M ED INP 18:51 → M PCU 20:30
DX: G45.9 Transient cerebral ischemic attack, unspecified (principal); Z68.42 Body mass index [BMI] 45.0-49.9, adult; I10 Essential (primary) hypertension; G62.9 Polyneuropathy, unspecified; E66.01 Morbid (severe) obesity due to excess calories; E78.5 Hyperlipidemia, unspecified; I87.2 Venous insufficiency (chronic) (peripheral); E87.6 Hypokalemia; R60.0 Localized edema; Z79.1 Long term (current) use of non-steroidal anti-inflammatories (NSAID); Z79.899 Other long term (current) drug therapy

== ENCOUNTER → 2018-05-11 | Outpatient (CLI) | payer OTHER ==
[2018-05-11 09:41] LABS: D-DIMER QUANT 343.7 ng/ml (<500)
== END ==
LOC: M LAB 09:03
DX: R60.9 Edema, unspecified (principal)
CPT/HCPCS: 36415

== ENCOUNTER → 2018-05-28 | Outpatient (CLI) | payer OTHER ==
[2018-05-28 11:10] LABS: AMORPHOUS SEDIMENT SMALL (NEGATIVE); APPEARANCE, URINE HAZY (CLEAR); BACTERIA, URINE AUTO 1+ (NEGATIVE); BILIRUBIN, URINE AUTO NEGATIVE (NEGATIVE); BLOOD, URINE BLOOD NEGATIVE (NEGATIVE); COLOR, URINE YELLOW (YELLOW); GLUCOSE, URINE (UA) AUTO NEGATIVE (NEGATIVE); KETONE, URINE AUTO TRACE mg/dL (NEGATIVE); LEUKOCYTE ESTERASE, URINE AUTO 1+ (NEGATIVE); MUCUS, URINE SMALL (NEGATIVE); NITRITE, URINE AUTO NEGATIVE (NEGATIVE); PROTEIN, URINE AUTO 1+ mg/dL (NEGATIVE); RBC, URINE AUTO 4 /HPF (0-3); SPECIFIC GRAVITY URINE AUTO 1.034 (1.002-1.035); SQUAMOUS EPITHELIAL CELL UR AU 8 /HPF (0-6); UROBILINOGEN, URINE AUTO 0.2 mg/dL (0.0-2.0); WBC, URINE AUTO 5 /HPF (0-3)
[2018-05-28 11:47] LABS: ESTIMATED AVERAGE GLUCOSE 117 MG/DL (60-110); HEMOGLOBIN A1c 5.7 %
[2018-05-28 11:49] LABS: ALBUMIN 3.7 GM/DL (3.2-5.2); ALKALINE PHOSPHATASE 69 U/L (45-117); ALT/SGPT 20 U/L (12-78); ANION GAP 9 MEQ/L (8-16); AST/SGOT 16 U/L (7-37); BILIRUBIN,TOTAL 0.4 MG/DL (0.2-1.0); BLOOD UREA NITROGEN 21 MG/DL (7-18); CALCIUM LEVEL 8.8 MG/DL (8.8-10.2); CARBON DIOXIDE LEVEL 27 MEQ/L (21-32); CHLORIDE LEVEL 107 MEQ/L (98-107); CHOLESTEROL LEVEL 155 MG/DL (<200); CHOLESTEROL RISK RATIO 1.781 (<5); GLOMERULAR FILTRATION RATE > 60.0 (>45); GLUCOSE, FASTING 76 MG/DL (70-100); HDL CHOLESTEROL 87 MG/DL (>40); LDL CHOLESTEROL 55 MG/DL (<100); NON-HDL-C 68 MG/DL; POTASSIUM SERUM 4.1 MEQ/L (3.5-5.1); SODIUM LEVEL 143 MEQ/L (136-145); TOTAL PROTEIN 6.7 GM/DL (6.4-8.2); TRIGLYCERIDES LEVEL 66 MG/DL (<150)
[2018-05-28 12:31] LABS: MALB URINE SIEMENS 20.6 MG/L
[2018-05-28 13:05] LABS: ALBUMIN/GLOBULIN RATIO 1.23 (1.00-1.93)
[2018-05-28 20:36] LABS: MAU/CREAT RATIO 6.4 MCG/MG (0.0-30.0)
== END ==
LOC: M WUC 09:16
DX: E78.5 Hyperlipidemia, unspecified (principal); R35.1 Nocturia; R63.5 Abnormal weight gain
CPT/HCPCS: 84443

== ENCOUNTER → 2018-06-27 | Outpatient (REF) | payer OTHER | LOC: M LAB REF 15:44 | DX: L92.9 Granulomatous disorder of the skin and subcutaneous tissue, unspecified (principal) | CPT/HCPCS: 88305 ==

== ENCOUNTER → 2018-08-02 | Outpatient (REF) | payer OTHER | LOC: M SFHCPLAZ 15:26 | DX: E11.9 Type 2 diabetes mellitus without complications (principal) ==

== ENCOUNTER → 2018-09-03 | Outpatient (CLI) | payer OTHER ==
[~2018-09-03] MED LIST changes: +ALDA25TA PO; +AMLO5TAB4 PO; +ASPI81TAEC PO
== END ==
LOC: M LAB 16:05
PROVIDERS: ATTEND Hospitalist
DX: E11.9 Type 2 diabetes mellitus without complications (principal)

== ENCOUNTER → 2019-04-11 | Outpatient (CLI) | payer MEDICAID, OTHER ==
[~2019-04-11] MED LIST changes: -/HCTZ25TA PO; -ACET50TA PO; -ALDA25TA PO; -AMLO5TAB4 PO; +AMLO5TAB6 PO; -BACTDSTA PO; +HYDR-2541 PO; +HYDR-3644 PO; -HYDR25TAB PO; +LISI40TA52 PO; -LISI40TAB PO; +MAPA500T17 PO; +MUPI1OIN2 EXT; -MUPI2OI EXT; +OXYC1TAB23 PO; -PERCOCET PO; +SPIR1TAB34 PO; +SULF1TAB23 PO
[2019-04-11 08:26] LABS: BASO % 0.5 % (0.0-1.0); EOS # 0.2 10^3/uL (0.0-0.50); EOS % 2.9 % (0.0-3.0); HEMOGLOBIN 13.7 g/dl (12.0-15.5); LYMPH # 1.7 10^3/uL (1.5-4.5); LYMPH % 29.3 % (24.0-44.0); MEAN CORPUSCULAR HEMOGLOBIN 29.4 pg (27.0-33.0); MEAN CORPUSCULAR HGB CONC 31.9 g/dl (32.0-36.5); MEAN CORPUSCULAR VOLUME 92.3 fl (80.0-96.0); MONO # 0.5 10^3/uL (0.0-0.8); MONO % 9.4 % (0.0-5.0); NEUTROPHILS # 3.3 10^3/uL (1.8-7.7); NEUTROPHILS % 57.2 % (36.0-66.0); PLATELET COUNT, AUTOMATED 306 10^3/uL (150-450); RED BLOOD COUNT 4.66 10^6/uL (4.00-5.40); WHITE BLOOD COUNT 5.8 10^3/uL (4.0-10.0)
[2019-04-11 08:42] LABS: HEMOGLOBIN A1c 6.1 %
== END ==
LOC: M LAB 07:51
PROVIDERS: ATTEND Hospitalist
DX: R06.02 Shortness of breath (principal); R73.09 Other abnormal glucose

== ENCOUNTER → 2019-04-25 | Outpatient (CLI) | payer OTHER ==
[~2019-04-25] MED LIST changes: +ATOR40TA75 PO; +METF-839 PO
--- NOTE | 2019-04-25 14:16 | REPMRS ---
Patient History The patient states she has not had a clinical breast exam in over a year. Family history of breast cancer under age 50 in sister, breast cancer at age 50 or over in maternal aunt, breast cancer at age 50 or over in paternal aunt. 3D TOMOSYNTHESIS WAS PERFORMED. Digital Woman Screen Mammo: April 25, 2019 - Exam #: [id number] Bilateral CC and MLO view(s) were taken. Technologist: Chloe Groves, Technologist Prior study comparison: January 29, 2018, digital woman screen mammo performed at [facility]. January 28, 2015, digital woman screen mammo performed at [facility]. FINDINGS: There are scattered fibroglandular densities. There has been no change in the appearance of the mammogram from the prior studies. There is a mild amount of residual fibroglandular tissue which is fairly symmetric. There is no interval development of dominant mass, architectural distortion, or clustered microcalcification suggestive of malignancy. Assessment: BI-RADS/ACR category 1 mammogram. Negative Mammogram. Recommendation Routine screening mammogram in 1 year (for women over age 40). This mammogram was interpreted with the aid of an FDA-approved computer-aided dectection system. THE LIFETIME RISK OF BREAST CANCER IS 20.3%, THEREFORE SUPPLEMENTAL SCREENING MRI OF THE BREASTS IS RECOMMENDED IN 6 MONTHS. Electronically Signed By: Watson Remy MD 04/25/19 [id number]
== END ==
LOC: M WHC 13:21
PROVIDERS: ATTEND Hospitalist
DX: Z12.31 Encounter for screening mammogram for malignant neoplasm of breast (principal)

== ENCOUNTER → 2019-05-30 | Outpatient (CLI) | payer OTHER ==
[~2019-05-30] MED LIST changes: -ATOR40TA75 PO; -METF-839 PO
--- NOTE | 2019-05-30 16:28 | REP ---
CHEST, TWO VIEWS: Two views of the chest are performed and compared to prior study 02/17/2018 and 11/08/2016. There is a very large hiatal hernia. The heart is mildly enlarged. There is calcification and tortuosity of the thoracic aorta. The mediastinal silhouette otherwise appears unremarkable. There are degenerative changes of the spine. Lungs appear clear. IMPRESSION: Very large hiatal hernia. Mild cardiomegaly. No evidence of infiltrate. Electronically Signed by Watson Remy MD 05/30/2019 04:45 P
== END ==
LOC: M RAD 15:34
DX: R06.02 Shortness of breath (principal); K44.9 Diaphragmatic hernia without obstruction or gangrene; I51.7 Cardiomegaly

== ENCOUNTER → 2019-06-04 | Outpatient (CLI) | payer OTHER ==
[2019-06-04 13:39] LABS: BLOOD UREA NITROGEN 32 MG/DL (7-18); CALCIUM LEVEL 9.9 MG/DL (8.8-10.2); CARBON DIOXIDE LEVEL 34 MEQ/L (21-32); CHLORIDE LEVEL 96 MEQ/L (98-107); CREATININE FOR GFR 0.85 MG/DL (0.55-1.30); GLOMERULAR FILTRATION RATE > 60.0 (>45); GLUCOSE, FASTING 75 MG/DL (70-100); POTASSIUM SERUM 4.1 MEQ/L (3.5-5.1); SODIUM LEVEL 138 MEQ/L (136-145)
== END ==
LOC: M WUC 10:26
PROVIDERS: ATTEND Family Medicine
DX: R06.02 Shortness of breath (principal)

== ENCOUNTER → 2019-06-10 | Outpatient (CLI) | payer OTHER ==
[~2019-06-10] MED LIST changes: +ATOR40TA75 PO; +METF-839 PO
--- NOTE | 2019-06-10 11:24 | PFTRPT ---
Height: 64.00 Inches Weight: 276.00 Lbs BSA: 2.24 Diagnosis: R06 DATE OF PROCEDURE: 06/10/2019 ORDERED BY: Dr. Henry Persaud Spirometry: Pre and post bronchodilator study of excellent technical quality. Forced vital capacity reduced. FEV1 in proportion. Obstructive index is, therefore, normal. Flow Volume Loop: Expiratory limb of the flow volume loop does suggest flow rate limitation. Significant bronchodilator response is identified. Lung Volumes: Total lung capacity mildly reduced. Residual volume suggests air trapping. Diffusing Capacity: Diffusing capacity, although reduced, is appropriate for alveolar volume. Hemoglobin: Hemoglobin acceptable at 14.2. Airway Mechanics: Airway resistance mildly elevated with a concomitant decrease in airway conductance. IMPRESSION: Reversible obstructive ventilatory defect with mild restriction and air trapping. Please correlate clinically. MTDD
== END ==
LOC: M CARPUL 08:36
PROVIDERS: ATTEND Family Medicine
DX: R06.02 Shortness of breath (principal)

== ENCOUNTER 2019-06-13 02:59 | Emergency (ER) | payer OTHER ==
[~2019-06-13] VITALS: Ht 162.6 cm; Wt 125.0 kg
[~2019-06-13 02:59] MED LIST changes: -ATOR40TA75 PO; -METF-839 PO
[2019-06-13] MEDS ORDERED: IBUPOTC PO (03:05)
[2019-06-13] MEDS ORDERED: ATOR40TA75 PO (03:07)
[2019-06-13] MEDS ORDERED: METF-839 PO (03:07)
[2019-06-13] MEDS ORDERED: KETOROLAC 30 MG/ML VIAL (J1885) IV ONE (03:45)
[2019-06-13] MEDS ORDERED: ONDANSETRON 4MG/2ML VIAL (J2405) As Ordered ONE (04:05)
[2019-06-13 04:14] LABS: BASO % 0.5 % (0.0-1.0); EOS # 0.2 10^3/uL (0.0-0.5); EOS % 2.6 % (0.0-3.0); HEMATOCRIT 39.8 % (36.0-47.0); HEMOGLOBIN 12.8 g/dl (12.0-15.5); LYMPH # 1.5 10^3/uL (1.5-5.0); LYMPH % 19.7 % (24.0-44.0); MEAN CORPUSCULAR HGB CONC 32.2 g/dl (32.0-36.5); MEAN CORPUSCULAR VOLUME 90.2 fl (80.0-96.0); MONO # 0.6 10^3/uL (0.0-0.8); NEUTROPHILS # 5.3 10^3/uL (1.5-8.5); NEUTROPHILS % 68.7 % (36.0-66.0); PLATELET COUNT, AUTOMATED 374 10^3/uL (150-450); RED BLOOD COUNT 4.41 10^6/uL (4.00-5.40); WHITE BLOOD COUNT 7.8 10^3/uL (4.0-10.0)
[2019-06-13] MEDS ORDERED: ONDANSETRON 4MG/2ML VIAL (J2405) IV ONE (04:15)
[2019-06-13 04:57] LABS: ALBUMIN 3.2 GM/DL (3.2-5.2); ALT/SGPT 15 U/L (12-78); BILIRUBIN,DIRECT < 0.1 MG/DL (0.0-0.2); BILIRUBIN,TOTAL 0.3 MG/DL (0.2-1.0); BLOOD UREA NITROGEN 23 MG/DL (7-18); CALCIUM LEVEL 8.5 MG/DL (8.8-10.2); CARBON DIOXIDE LEVEL 33 MEQ/L (21-32); CHLORIDE LEVEL 104 MEQ/L (98-107); GLOMERULAR FILTRATION RATE > 60.0 (>45); GLUCOSE, FASTING 112 MG/DL (70-100); LIPASE 74 U/L (73-393); POTASSIUM SERUM 4.2 MEQ/L (3.5-5.1); SODIUM LEVEL 142 MEQ/L (136-145); TOTAL PROTEIN 6.7 GM/DL (6.4-8.2)
[2019-06-13] MEDS ORDERED: ISOVUE-370 76% 100ML VIAL (Q9967) As Ordered ONE (06:49)
--- NOTE | 2019-06-13 07:27 | REP ---
Clinical: Abdominal pain. Technique: Upright view of the chest with supine and upright views of the abdomen and pelvis. Findings: Upright view of the chest demonstrates opacity overlying the mediastinum and left mid to lower lung zone suggesting the possibility of large hernia and similar to prior examination. Abdomen and pelvis demonstrate nonspecific bowel gas pattern without obstruction or evidence for perforation. No organomegaly. Skeletal structures are intact. Impression: Suspected large diaphragmatic versus hiatal hernia. Electronically Signed by Darvin Elizabeth MD 06/13/2019 07:18 A
--- NOTE | 2019-06-13 07:39 | REPVR ---
PROCEDURE INFORMATION: Exam: US Abdomen Limited, Right Upper Quadrant Exam date and time: 06/13/2019 6:25 AM Clinical history: 59 years old, female; Abdominal pain; Epigastric; Additional info: Ruq pain TECHNIQUE: Imaging protocol: Real-time ultrasound of the abdomen with image documentation. Examination was focused on the right upper quadrant. COMPARISON: RENAL US 01/04/2018 10:55 AM FINDINGS: The study is significantly limited due to patient's body habitus. Liver: Marked limited visualization of the liver demonstrates no gross mass. Gallbladder: No March gallstones seen. There is no gallbladder wall thickening or pericholecystic fluid. No sonographic sign was elicited. Common bile duct: The CBD is normal in caliber measuring 4 mm. Pancreas: The pancreas is obscured by Right kidney: The right kidney measures 10.5 x 4.9 x 3.8 cm. No right renal mass, stone, cyst or hydronephrosis seen IMPRESSION: Markedly limited exam due to patient's body habitus and bowel gas. Within the limitations of the exam no gross abnormality noted. Electronically signed by: Heber Diaz On 06/13/2019 07:39:07 AM
--- NOTE | 2019-06-13 07:45 | REPVR ---
PROCEDURE INFORMATION: Exam: CT Angiography Chest With Contrast Exam date and time: 06/13/2019 6:43 AM Clinical history: 59 years old, female; Dyspnea; Additional info: Dyspnea on exertion TECHNIQUE: Imaging protocol: Computed tomographic angiography of the chest with intravenous contrast. 3D rendering: MIP reconstructed images were created and reviewed. Radiation optimization: All CT scans at this facility use at least one of these dose optimization techniques: automated exposure control; mA and/or kV adjustment per patient size (includes targeted exams where dose is matched to clinical indication); or iterative reconstruction. Contrast material: ISO; Contrast volume: 100 ml; Contrast route: AC; COMPARISON: CR Abdomen,Flat Upright,PA CHEST 06/13/2019 5:40 AM FINDINGS: Pulmonary arteries: Normal. No pulmonary emboli. Aorta: Unremarkable. No aortic aneurysm. No aortic dissection. Lungs: There is bilateral perihilar and lower lobes compressive atelectatic changes. There is mild mosaic lung attenuation. Pleural space: Unremarkable. No pneumothorax. No pleural effusion. Heart: Unremarkable. No cardiomegaly. No pericardial effusion. Stomach and bowel: There is massive hiatal hernia containing the entire stomach which demonstrates organoaxial rotation in addition to a midportion of the transverse colon. Lymph nodes: Unremarkable. No enlarged lymph nodes. Bones/joints: There are multilevel anterior thoracic spine osteophytes. Soft tissues: Unremarkable. Other findings: Please refer to CT of the abdomen and pelvis performed at the same time for detailed findings. IMPRESSION: 1. No CT evidence of pulmonary embolism or right heart strain. 2. Massive hiatal hernia containing the entire stomach which demonstrates organoaxial rotation in the midportion of the transverse colon with secondary significant bilateral perihilar and lower lobes atelectatic changes. 3. Mild mosaic lung attenuation suggestive of element of air trapping. Electronically signed by: Heber Diaz On 06/13/2019 07:45:04 AM
--- NOTE | 2019-06-13 07:50 | REPVR ---
PROCEDURE INFORMATION: Exam: CT Abdomen and Pelvis With Contrast Exam date and time: 06/13/2019 6:43 AM Clinical history: 59 years old, female; Abdominal pain; Generalized; Additional info: Dyspnea on exertion TECHNIQUE: Imaging protocol: Computed tomography of the abdomen and pelvis with intravenous contrast. Radiation optimization: All CT scans at this facility use at least one of these dose optimization techniques: automated exposure control; mA and/or kV adjustment per patient size (includes targeted exams where dose is matched to clinical indication); or iterative reconstruction. Contrast material: ISO; Contrast volume: 100 ml; Contrast route: AC; COMPARISON: GALLBLADDER US 06/13/2019 6:18 AM FINDINGS: Liver: There is a 1.7 x 1.5 cm right hepatic lobe hypodensity on axial image 39. Gallbladder and bile ducts: Normal. No calcified stones. No ductal dilation. Pancreas: There is a 1.7 cm fat density lesion in the pancreatic head. Spleen: Evaluation of the spleen is limited due to and demonstrates enhancement. Adrenals: Normal. No mass. Kidneys and ureters: Normal. No hydronephrosis. Stomach and bowel: There is massive hiatal hernia containing the entire stomach which demonstrates organoaxial rotation as well as a portion of the transverse colon. No abnormal dilatation is noted. There is descending and sigmoid colon diverticulosis. Appendix: No evidence of appendicitis. Intraperitoneal space: Unremarkable. No free air. No significant fluid collection. Vasculature: There is mild aortic calcifications. Lymph nodes: Unremarkable. No enlarged lymph nodes. Bladder: Unremarkable as visualized. Reproductive: There is 2.4 cm right uterine calcified lesion. There is 2.1 cm right adnexal cyst. Bones/joints: There is lower lumbar spine facet degenerative changes. Soft tissues: Unremarkable. IMPRESSION: 1. Massive hiatal hernia containing the entire stomach which demonstrate a organoaxial rotation and a big portion of the transverse colon with no evidence of bowel obstruction. 2. 1.7 x 1.5 cm right hepatic lobe indeterminate hypodense lesion which could represent a cyst however further characterization with MRI is suggested. 3. 1.7 cm pancreatic head fat density lesion likely lipoma. This can be further evaluated with the above suggested MRI. 4. 2.4 cm right uterine calcified lesion likely fibroid. 5. 2.1 cm right adnexal cyst. 6. Descending and sigmoid colon diverticulosis. Electronically signed by: Heber Diaz On 06/13/2019 07:50:13 AM
[2019-06-13 08:21] VITALS: BP 146/77
--- NOTE | 2019-06-13 19:36 | ED PDOC ---
Post-Departure Follow-Up dr rascon faxed formal report of ct chest and abd/p for fu Asher Castañeda MD Jun 13, 2019 19:36
== END 2019-06-13 08:26 | disposition home or self-care (01) ==
LOC: M ED 02:59
DX: K44.9 Diaphragmatic hernia without obstruction or gangrene (principal); I10 Essential (primary) hypertension; E78.5 Hyperlipidemia, unspecified; Z79.899 Other long term (current) drug therapy
CPT/HCPCS: 71275; 74021; 74177; 76705; 80048; 80076; 83690; 85025; 96374; 96375; 99284; J1885; J2405; Q9967

== ENCOUNTER → 2019-07-04 | Outpatient (CLI) | payer OTHER ==
[~2019-07-04] MED LIST changes: +ATOR40TA75 PO; +METF-839 PO
--- NOTE | 2019-07-04 13:25 | REP ---
MRI brain and pituitary: 07/04/2019. Indication: Pituitary neoplasm. Comparison: 02/17/2018. Technique: Multiplanar short and long TR sequences of the brain and pituitary were performed including post contrast imaging following administration of 10 ml IV ProHance. Findings: No sellar or suprasellar abnormalities are present. The reported hyperintense region on the unenhanced T1 images of the posterior sella represents normal appearing neurohypophysis. There are no areas of restricted diffusion. There is no intracranial mass effect or hydrocephalous. There are scattered foci of elevated T2 prolongation throughout the white matter bilaterally within the cerebral hemispheres, more pronounced on the left. The large intracranial flow voids are present. There are no areas of pathologic gadolinium enhancement. Impression: Normal pituitary gland. No acute intracranial process. 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 Electronically Signed by Ramón Pedersen DO 07/04/2019 01:17 P
== END ==
LOC: M PLARAD 11:40
PROVIDERS: ATTEND Family Medicine
DX: E23.7 Disorder of pituitary gland, unspecified (principal)

== ENCOUNTER → 2019-09-30 | Outpatient (CLI) | payer OTHER | LOC: M CARPUL 08:03 | PROVIDERS: ATTEND Family Medicine | DX: I51.89 Other ill-defined heart diseases (principal); R06.02 Shortness of breath ==

== ENCOUNTER → 2019-10-14 | Outpatient (CLI) | payer OTHER ==
[2019-10-14 13:43] LABS: BLOOD UREA NITROGEN 23 MG/DL (7-18); CARBON DIOXIDE LEVEL 33 MEQ/L (21-32); CHLORIDE LEVEL 104 MEQ/L (98-107); GLOMERULAR FILTRATION RATE > 60.0 (>45); GLUCOSE, FASTING 106 MG/DL (70-100); SODIUM LEVEL 141 MEQ/L (136-145)
== END ==
LOC: M WUC 09:36
PROVIDERS: ATTEND Family Medicine
DX: I10 Essential (primary) hypertension (principal)

== ENCOUNTER 2020-02-29 20:24 | Inpatient (IN) | payer OTHER ==
[~2020-02-29] VITALS: Ht 160 cm; Wt 132.4 kg
[~2020-02-29 20:24] MED LIST changes: +AMLO5TAB6; +ATOR40TA75; +ONDA4TAB6 PO; +PANT20TA2; +PROT1TAB2 PO; +REGL10TA6 PO; +SPIR1TAB34
[2020-02-29] MEDS ORDERED: CLIN300C5 PO (20:32)
[2020-02-29 21:43] LABS: BASO % 0.3 % (0.0-1.0); EOS # 0.1 10^3/uL (0.0-0.5); HEMATOCRIT 41.7 % (36.0-47.0); HEMOGLOBIN 13.1 g/dl (12.0-15.5); LYMPH # 1.3 10^3/uL (1.5-5.0); LYMPH % 11.3 % (24.0-44.0); MEAN CORPUSCULAR HEMOGLOBIN 28.5 pg (27.0-33.0); MEAN CORPUSCULAR HGB CONC 31.4 g/dl (32.0-36.5); MEAN CORPUSCULAR VOLUME 90.8 fl (80.0-96.0); MONO # 0.8 10^3/uL (0.0-0.8); MONO % 7.1 % (0.0-5.0); NEUTROPHILS # 9.2 10^3/uL (1.5-8.5); NEUTROPHILS % 79.7 % (36.0-66.0); PLATELET COUNT, AUTOMATED 293 10^3/uL (150-450); RED BLOOD COUNT 4.59 10^6/uL (4.00-5.40); WHITE BLOOD COUNT 11.5 10^3/uL (4.0-10.0)
[2020-02-29 22:01] LABS: ERYTHROCYTE SEDIMENTATION RATE 29 mm/hr (0-30)
[2020-02-29 22:06] LABS: INR 0.95; PROTHROMBIN TIME 12.4 SECONDS (11.8-14.0)
[2020-02-29 22:07] LABS: PARTIAL THROMBOPLASTIN TIME 29.2 SECONDS (25.0-38.4)
[2020-02-29 22:09] LABS: D-DIMER QUANT 559.41 ng/ml (<500)
--- NOTE | 2020-02-29 22:12 | REPVR ---
PROCEDURE INFORMATION: Exam: US Duplex Left Lower Extremity Veins, Limited Exam date and time: 02/29/2020 10:04 PM Age: 59 years old Clinical indication: Pain; Edema, localized; Lower extremity, left; Leg, upper and leg, lower; Additional info: R/O dvt, pain swelling TECHNIQUE: Imaging protocol: Real-time Duplex ultrasound of the Left Lower Extremity with 2-D dunn scale, color Doppler flow and spectral waveform analysis with image documentation. Limited exam focused on the left lower extremity veins. COMPARISON: US Duplex, Ext,LOWER veins,unilat 05/16/2016 10:15 PM FINDINGS: Left deep veins: Unremarkable. The common femoral, femoral, proximal profunda femoral and popliteal veins are patent without thrombus. Normal Doppler waveforms. Normal compressibility and/or augmentation response. Left superficial veins: Unremarkable. Saphenofemoral junction is patent without thrombus. Soft tissues: Unremarkable. IMPRESSION: Negative left lower extremity venous duplex exam without evidence of deep venous thrombosis. Electronically signed by: Gerardo Harrington On 02/29/2020 22:11:02 PM
[2020-02-29] MEDS ORDERED: ISOVUE-370 76% 100ML VIAL As Ordered ONE (22:31)
[2020-02-29 22:36] LABS: ALBUMIN 3.3 GM/DL (3.2-5.2); ALT/SGPT 25 U/L (12-78); BILIRUBIN,DIRECT < 0.1 MG/DL (0.0-0.2); BILIRUBIN,TOTAL 0.4 MG/DL (0.2-1.0); C REACTIVE PROTEIN QUANTITATIV 6.83 MG/DL (0.00-0.30); TOTAL PROTEIN 7.1 GM/DL (6.4-8.2)
[2020-02-29] MEDS ORDERED: ceFAZolin SOD 1 GM in D5W MINI-BAG PLUS 50 ML IV ONE (22:45)
--- NOTE | 2020-02-29 23:04 | REPVR ---
PROCEDURE INFORMATION: Exam: CT Angiography Chest With Contrast Exam date and time: 02/29/2020 10:42 PM Age: 59 years old Clinical indication: Chest pain; Additional info: SOB TECHNIQUE: Imaging protocol: Computed tomographic angiography of the chest with intravenous contrast. 3D rendering: MIP and/or 3D reconstructed images were created by the technologist. Radiation optimization: All CT scans at this facility use at least one of these dose optimization techniques: automated exposure control; mA and/or kV adjustment per patient size (includes targeted exams where dose is matched to clinical indication); or iterative reconstruction. Contrast material: ISO 370; Contrast volume: 100 ml; Contrast route: IV; COMPARISON: CT ANGIO CHEST 06/13/2019 6:54 AM FINDINGS: Pulmonary arteries: The main pulmonary artery measures 27 mm. No pulmonary embolism is identified. Aorta: The ascending thoracic aorta measures 30 mm. Lungs: Mild bilateral lower lobe and lingular fibro-atelectatic change. Pleural space: Unremarkable. No pneumothorax. No pleural effusion. Heart: Unremarkable. No cardiomegaly. No pericardial effusion. Lymph nodes: Unremarkable. No enlarged lymph nodes. Stomach and bowel: Large hiatal hernia containing much of the stomach as well as the distal transverse colon and splenic flexure. Bones/joints: Slight anterior wedge configuration of T11 and T12 which appear to be chronic. Soft tissues: Unremarkable. IMPRESSION: 1. Large hiatal hernia containing much of the stomach as well as the distal transverse colon and splenic flexure. There is adjacent fibro-atelectatic change in the lower lobes and lingula. 2. Otherwise negative CTA chest which is similar to 06/06. No pulmonary embolism is identified. Electronically signed by: Gerardo Harrington On 02/29/2020 23:03:43 PM
[2020-03-01] MEDS ORDERED: PANT-23 PO (00:10)
[2020-03-01] MEDS ORDERED: ARNU1INH IN (00:11)
[2020-03-01] MEDS ORDERED: VENTAER INH (00:11)
[2020-03-01] MEDS ORDERED: ALBUTEROL 90 MCG/ACT 8GM HFA INHALER INH PRN (00:45)
--- NOTE | 2020-03-01 00:52 | HPEPDOC ---
[facility] Medical History & Physical Date of Admission Mar 01, 2020 Date of Service: Mar 01, 2020 Attending Physician: BRYANNA CASTELLANO MD History and Physical CHIEF COMPLAINT: Left leg infection HISTORY OF PRESENT ILLNESS: 59-year-old female with past medical history of diabetes mellitus, hypertension and hyperlipidemia presents with left lower extremity infection. She was diagnosed with cellulitis in her left leg and started on clindamycin for 5 days ago, reports improvement in redness and swelli ng of her leg, but she has developed generalized myalgias, chills and sweats over the past 24-48 hours. She has no other complaints, denies any fever, shortness of breath, chest pain, nausea, vomiting, diarrhea or constipation. In the ER lower shimmery Doppler is negative for DVT, CTA negative for acute pathology. 10 point review of system is negative except for above PAST MEDICAL HISTORY: 1. Hypertension. 2. Diabetes mellitus. 3. Hyperlipidemia. PAST SURGICAL HISTORY: 1. . SOCIAL HISTORY: Denies smoking Denies alcohol use. Denies drug use FAMILY HISTORY: Positive for heart disease ALLERGIES: Please see below. HOME MEDICATIONS: Please see below. PHYSICAL EXAMINATION: VITAL SIGNS: Please see below. GENERAL: No distress, morbidly obese HEENT: Normocephalic, atraumatic, moist mucous membranes NECK: Supple CARDIOVASCULAR EXAMINATION: S1, S2, no murmurs RESPIRATORY EXAMINATION: Poor air movement, diminished in the bases, scattered rhonchi, no wheezing ABDOMINAL EXAMINATION: Soft, nontender, nondistended, positive bowel sounds EXTREMITIES: Left lower extremity with pitting edema, redness, warm to touch and tender to palpation SKIN: No rash NEUROLOGICAL EXAMINATION: Alert and oriented 3, no focal deficits PSYCHIATRIC EXAMINATION: Calm and cooperative LABORATORY DATA: See below. IMAGING: Lower extremity Doppler negative for DVT, CTA negative for acute pathology, showing large hiatal hernia MICROBIOLOGY: Please see below. ASSESSMENT: 59-year-old female with past medical history of diabetes mellitus, hypertension and hyperlipidemia is being admitted for left lower extremity cellulitis. PLAN: 1. Cellulitis. Concern for outpatient treatment failure as patient is developing chills, sweats and generalized myalgias, although reports improvement in leg appearance since starting clindamycin, cultures pending, Ancef. 2. Diabetes mellitus. Sliding scale insulin coverage with meals and at bedtime 3. Hypertension. Continue Norvasc, spironolactone and hydrochlorothiazide 4. Hyperlipidemia. Continue statin DVT prophylaxis: Lovenox. GI prophylaxis: Not needed Vital Signs Vital Signs Date Time Temp Pulse Resp B/P (MAP) Pulse Ox O2 Delivery O2 Flow Rate FiO2 02/29/20 23:06 90 18 183/86 (118) 96 Room Air 02/29/20 23:05 99.6 Laboratory Data Labs 24H Laboratory Tests 2 02/29/20 21:29: Immature Granulocyte % (Auto) 0.6, Neutrophils (%) (Auto) 79.7H, Lymphocytes (%) (Auto) 11.3L, Monocytes (%) (Auto) 7.1H, Eosinophils (%) (Auto) 1.0, Basophils (%) (Auto) 0.3, Neutrophils # (Auto) 9.2H, Lymphocytes # (Auto) 1.3L, Monocytes # (Auto) 0.8, Eosinophils # (Auto) 0.1, Basophils # (Auto) 0.0, Nucleated Red Blood Cells % (auto) 0.0, Erythrocyte Sedimentation Rate 29, Prothrombin Time 12.4, Prothromb Time International Ratio 0.95, Activated Partial Thromboplast Time 29.2, D-Dimer, Quantitative 559.41H, Lactic Acid Level 1.0, Total Bilirubin 0.4, Direct Bilirubin < 0.1, Aspartate Amino Transf (AST/SGOT) 26, Alanine Aminotransferase (ALT/SGPT) 25, Alkaline Phosphatase 109, C-Reactive Protein, Quantitative 6.83H, Total Protein 7.1, Albumin 3.3, Albumin/Globulin Ratio 0.9L 02/29/20 21:40: POC Glucose (Misc Panel) 111H, POC Sodium (Misc Panel) 142, POC Potassium (Misc Panel) 3.3L, POC Chloride (Misc Panel) 101, POC Total CO2 (Misc Panel) 29.0H, POC Blood Urea Nitrogen (Misc Panel 17, POC Ionized Calcium (Misc Panel) 4.5, POC Creatinine (Misc Panel) 0.6, POC Hematocrit (Misc Panel) 42.0 CBC/BMP Laboratory Tests 02/29/20 21:29 Microbiology Microbiology 02/29/20 Blood Culture, Received Pending 02/29/20 Blood Culture, Received Pending Home Medications Scheduled Amlodipine Besylate (Amlodipine Besylate) 5 Mg Tab, 5 MG PO DAILY Atorvastatin Calcium (Atorvastatin Calcium) 40 Mg Tablet, 40 MG PO DAILY Clindamycin HCl (Clindamycin HCl) 300 Mg Capsule, 300 MG PO TID started 02/25/20 for 10 days Fluticasone Furoate (Arnuity Ellipta) 100 Mcg Blst.w.dev, 1 PUFF IN DAILY Metformin HCl (Metformin HCl) 500 Mg Tablet, 1,000 MG PO DAILY Pantoprazole Sodium (Pantoprazole Sodium) 40 Mg Tablet.dr, 40 MG PO DAILY Spironolact/Hydrochlorothiazid (Spironolactone-Hctz 25-25 Tab) 1 Ea Tab, 1 EA PO DAILY Scheduled PRN Albuterol Sulfate (Ventolin Hfa) 18 Gm Hfa.aer.ad, 2 PUFFS INH Q4H PRN for SHORTNESS OF BREATH Ibuprofen (Ibuprofen) 200 Mg Tablet, 600 MG PO BID PRN for PAIN / FEVER Allergies Coded Allergies: No Known Allergies (Unverified , 06/13/19) A-FIB/CHADSVASC A-FIB History Current/History of A-Fib/PAF?: No BRYANNA CASTELLANO MD Mar 01, 2020 00:51
[2020-03-01] MEDS ORDERED: GLUCAGON INJ 1MG VIAL SC PRN (01:00)
[2020-03-01] MEDS ORDERED: GLUCOSE 4GM CHEW TABLET PO PRN (01:00)
[2020-03-01] MEDS ORDERED: DEXTROSE 50% 50 ML SYRINGE IV PRN (01:00)
[2020-03-01 01:46] VITALS: BP 147/96
[2020-03-01 06:00] VITALS: BP 148/71
[2020-03-01] MEDS: ACETAMINOPHEN TAB 650MG DOSE (2X325MG) PO PRN (06:15)
[2020-03-01 06:40] LABS: HEMATOCRIT 37.1 % (36.0-47.0); HEMOGLOBIN 11.7 g/dl (12.0-15.5); MEAN CORPUSCULAR HEMOGLOBIN 28.7 pg (27.0-33.0); MEAN CORPUSCULAR HGB CONC 31.5 g/dl (32.0-36.5); MEAN CORPUSCULAR VOLUME 90.9 fl (80.0-96.0); PLATELET COUNT, AUTOMATED 243 10^3/uL (150-450); RED BLOOD COUNT 4.08 10^6/uL (4.00-5.40)
[2020-03-01 06:58] LABS: ALBUMIN 2.7 GM/DL (3.2-5.2); ALT/SGPT 22 U/L (12-78); BILIRUBIN,TOTAL 0.4 MG/DL (0.2-1.0); BLOOD UREA NITROGEN 14 MG/DL (7-18); CALCIUM LEVEL 8.4 MG/DL (8.8-10.2); CARBON DIOXIDE LEVEL 31 MEQ/L (21-32); CHLORIDE LEVEL 107 MEQ/L (98-107); CREATININE FOR GFR 0.51 MG/DL (0.55-1.30); GLOMERULAR FILTRATION RATE > 60.0 (>45); GLUCOSE, FASTING 94 MG/DL (70-100); POTASSIUM SERUM 3.3 MEQ/L (3.5-5.1); SODIUM LEVEL 142 MEQ/L (136-145); TOTAL PROTEIN 6.1 GM/DL (6.4-8.2)
[2020-03-01] MEDS ORDERED: ceFAZolin SOD 1 GM in D5W MINI-BAG PLUS 50 ML IV SCH (07:00)
[2020-03-01] MEDS: HumaLOG INSULIN (NovoLOG) PER UNIT SC SCH ×3 (07:06→16:58)
[2020-03-01] MEDS ORDERED: POTASSIUM CHLORIDE 10 MEQ SR TABLET PO ONE (09:15)
[2020-03-01] MEDS: ENOXAPARIN 40MG/0.4ML SYRINGE (J1650 PER 10MG) SC SCH (09:51)
[2020-03-01] MEDS: SPIRONOLACTONE 25 MG TAB PO SCH (09:51)
[2020-03-01] MEDS: PANTOPRAZOLE 40MG TAB (PROTONIX) PO SCH (09:52)
[2020-03-01] MEDS: amLODIPine 5 MG TAB PO SCH (09:52)
[2020-03-01] MEDS: hydroCHLOROthiazide 25 MG TAB PO SCH (09:52)
[2020-03-01] MEDS: ATORVASTATIN 20 MG TAB PO SCH (09:52)
--- NOTE | 2020-03-01 11:42 | IPNPDOC ---
Date Seen The patient was seen on 03/01/20. Progress Note HPI: Pt is a 59 yo female with PMH of diabetes mellitus, hypertension and hyperlipidemia who was recently diagnosed with left LE cellulitis and started with clindamycin 5 days prior to admission presented with left lower extremity infection. It was noted that pt developed generalized myalgias, chills and sweats 1-2 days prior to admission. ER duplex b/l LE US was negative for DVT and CTA negative for acute pathology Pt was examined at bedside today. She denies any fever. Reported some chills but had improved. She reported her left lower extremity swelling and erythema had improved; reported pain only with pressure. Denies any chest pain, palpitation, dyspnea, nausea, or vomiting. PHYSICAL EXAMINATION: VITAL SIGNS: Please see below. GENERAL: No distress, morbidly obese, pleasant, cooperative HEENT: Normocephalic, atraumatic, moist mucous membranes NECK: Supple CARDIOVASCULAR EXAMINATION: S1, S2, no murmurs RESPIRATORY EXAMINATION: Poor air movement, diminished in the bases, no obvious wheezing or crackles b/l ABDOMINAL EXAMINATION: Soft, nontender, nondistended, positive bowel sounds aus in all 4 quadrants, no guarding EXTREMITIES: Left lower extremity swelling and redness, mild tenderness to palpation. No open wound noted SKIN: Swelling and erythema in left lower extremity in calf and ankle region NEUROLOGICAL EXAMINATION: Alert and oriented 3, no focal deficits . Memory and cognitive fxn grossly intact PSYCHIATRIC EXAMINATION: Calm and cooperative LABORATORY DATA: See below. IMAGING: Lower extremity Doppler negative for DVT.CTA negative for acute pathology but showed large hiatal hernia MICROBIOLOGY: Please see below. ASSESSMENT: Pt is a 59 yo female with past medical history of diabetes mellitus, hypertension and hyperlipidemia who had 5 days of outpt abx treatment for left LE cellulitis admitted to hospital PLAN: 1. Left lower extremity cellulitis, non-purulent. S/p 5 days of clindamycin ; pt was developing chills, sweats and generalized myalgias upon admission. Denies any fever, chills, nausea, vomiting, and reported swelling and erythema in left leg had improved. Switch IV Cefazolin to Ceftriaxone and doxy. MRSA screen ordered; pt reported hx of MRSA upon asking. Blood cx X2 pending. MRSA screen ordered. PT/OT ordered. Consider d/c doxy if MRSA screen neg as pt has mod non- purulent cellulitis. 2. Diabetes mellitua, non-insulin dependent. Glucose checks, hypoglycemic protocol, and sliding scale insulin coverage with meals and at bedtime 3. Hypertension. PMH of HTN. Cont Continue Norvasc, spironolactone and hydrochlorothiazide 4. Hyperlipidemia. Continue home med statin DVT prophylaxis: Lovenox. GI prophylaxis: Not needed DISPO: Left LE cellulitis had outpt cellulitis abx, improving, switch abx with MRSA screen. PT/OT ordered. Anticipate discharge 24h hours VS, I&O, 24H, Fishbone Vital Signs/I&O Vital Signs Date Time Temp Pulse Resp B/P (MAP) Pulse Ox O2 Delivery O2 Flow Rate FiO2 03/01/20 09:52 88 138/72 03/01/20 06:00 98.7 18 92 Room Air I&O- Last 24 Hours up to 6 AM 03/01/20 06:00 Intake Total 50 ml Output Total 300 ml Balance -250 ml Laboratory Data 24H LABS Laboratory Tests 2 02/29/20 21:29: Immature Granulocyte % (Auto) 0.6, Neutrophils (%) (Auto) 79.7H, Lymphocytes (%) (Auto) 11.3L, Monocytes (%) (Auto) 7.1H, Eosinophils (%) (Auto) 1.0, Basophils (%) (Auto) 0.3, Neutrophils # (Auto) 9.2H, Lymphocytes # (Auto) 1.3L, Monocytes # (Auto) 0.8, Eosinophils # (Auto) 0.1, Basophils # (Auto) 0.0, Nucleated Red Blood Cells % (auto) 0.0, Erythrocyte Sedimentation Rate 29, Prothrombin Time 12.4, Prothromb Time International Ratio 0.95, Activated Partial Thromboplast Time 29.2, D-Dimer, Quantitative 559.41H, Lactic Acid Level 1.0, Total Bilirubin 0.4, Direct Bilirubin < 0.1, Aspartate Amino Transf (AST/SGOT) 26, Alanine Aminotransferase (ALT/SGPT) 25, Alkaline Phosphatase 109, C-Reactive Protein, Quantitative 6.83H, Total Protein 7.1, Albumin 3.3, Albumin/Globulin Ratio 0.9L 02/29/20 21:40: POC Glucose (Misc Panel) 111H, POC Sodium (Misc Panel) 142, POC Potassium (Misc Panel) 3.3L, POC Chloride (Misc Panel) 101, POC Total CO2 (Misc Panel) 29.0H, POC Blood Urea Nitrogen (Misc Panel 17, POC Ionized Calcium (Misc Panel) 4.5, POC Creatinine (Misc Panel) 0.6, POC Hematocrit (Misc Panel) 42.0 03/01/20 06:10: Nucleated Red Blood Cells % (auto) 0.0, Total Bilirubin 0.4, Aspartate Amino Transf (AST/SGOT) 10, Alanine Aminotransferase (ALT/SGPT) 22, Alkaline Phosphatase 81, Total Protein 6.1L, Albumin 2.7L, Albumin/Globulin Ratio 0.8L, Anion Gap 4L, Glomerular Filtration Rate > 60.0, Calcium Level 8.4L, Magnesium Level 2.0 03/01/20 11:28: Bedside Glucose (Misc Panel) 88 CBC/BMP Laboratory Tests 02/29/20 21:29 03/01/20 06:10 Microbiology Microbiology 02/29/20 Blood Culture, Received Pending 02/29/20 Blood Culture, Received Pending GME ATTESTATION GME ATTESTATION My faculty preceptor for this patient encounter was physically present during the encounter and was fully available. All aspects of the patient interview, examination, medical decision making process, and medical care plan development were reviewed and approved by the faculty preceptor. The faculty preceptor is aware and concurs with the plan as stated in the body of this note and will attest to such by his/her cosignature. MEERA DODSON DO Mar 01, 2020 11:42
[2020-03-01] MEDS ORDERED: DOXYCYCLINE HYCLATE 100 MG in D5W MINI-BAG PLUS 100 ML IV SCH (13:00)
[2020-03-01 14:00] VITALS: BP 143/73
[2020-03-01] MEDS ORDERED: cefTRIAXone SOD 1 GM in D5W MINI-BAG PLUS 50 ML IV SCH (14:00)
[2020-03-01] MEDS ORDERED: HumaLOG INSULIN (NovoLOG) PER UNIT SC SCH (21:00)
[2020-03-01 22:00] VITALS: BP 144/92
[2020-03-02] MEDS: ACETAMINOPHEN TAB 650MG DOSE (2X325MG) PO PRN (04:52)
[2020-03-02 06:00] VITALS: BP 158/88
[2020-03-02] MEDS: HumaLOG INSULIN (NovoLOG) PER UNIT SC SCH (07:30)
[2020-03-02 08:48] VITALS: BP 158/88
[2020-03-02] MEDS: PANTOPRAZOLE 40MG TAB (PROTONIX) PO SCH (08:48)
[2020-03-02] MEDS: hydroCHLOROthiazide 25 MG TAB PO SCH (08:48)
[2020-03-02] MEDS: amLODIPine 5 MG TAB PO SCH (08:48)
[2020-03-02] MEDS: SPIRONOLACTONE 25 MG TAB PO SCH (08:48)
[2020-03-02] MEDS: ATORVASTATIN 20 MG TAB PO SCH (08:48)
[2020-03-02] MEDS: ENOXAPARIN 40MG/0.4ML SYRINGE (J1650 PER 10MG) SC SCH (08:49)
[2020-03-02] MEDS ORDERED: AUGM875T28 PO (12:30)
--- NOTE | 2020-03-02 12:34 | DS.PDOC ---
Discharge Summary General Date of Admission Mar 01, 2020 at 00:45 Date of Discharge 03/02/20 Discharge Summary CHIEF COMPLAINT: Left leg infection Final diagnosis: Cellulitis HISTORY OF PRESENT ILLNESS: 59-year-old female with past medical history of diabetes mellitus, hypertension and hyperlipidemia presents with left lower extremity infection. She was diagnosed with cellulitis in her left leg and started on clindamycin for 5 days ago, reports improvement in redness and swelling of her leg, but she has developed generalized myalgias, chills and sweats over the past 24-48 hours. In the ER lower shimmery Doppler is negative for DVT, CTA negative for acute pathology.. Blood cultures were sent which are negative. The serratus was monitored and the patient was started on Rocephin. The patient has been afebrile with no leukocytosis. There is no fluctuation. No signs of any abscess or any purulent cellulitis. The erythema has gone. There is mild discoloration and no tenderness. The patient has been advised to keep her legs. It is and take 4 more days of Augmentin and she will be discharged home with follow-up with PCP in 1 week. She will be continued on her home hypertensi ve medications. She is clinically stable for discharge PHYSICAL EXAMINATION: GENERAL: No distress, morbidly obese HEENT: Normocephalic, atraumatic, moist mucous membranes NECK: Supple CARDIOVASCULAR EXAMINATION: S1, S2, no murmurs RESPIRATORY EXAMINATION: Poor air movement, diminished in the bases, scattered rhonchi, no wheezing ABDOMINAL EXAMINATION: Soft, nontender, nondistended, positive bowel sounds EXTREMITIES: Left lower extremity with pitting edema, no redness, no warmth to touch and no tenderness NEUROLOGICAL EXAMINATION: Alert and oriented 3, no focal deficits PSYCHIATRIC EXAMINATION: Calm and cooperative Medications. As per discharge reconciliation medication list Activity as tolerated Diet. 2 g sodium diet Follow-up appointments. PCP in 1 week. Condition on discharge. Patient is medically optimized for discharge Discharge disposition: Home Total time spent on this discharge including coordination of care, review of chart documentation and actual contact is around 35 minutes Vital Signs/I&Os Vital Signs Date Time Temp Pulse Resp B/P (MAP) Pulse Ox O2 Delivery O2 Flow Rate FiO2 03/02/20 08:48 87 158/88 03/02/20 06:00 98.9 18 99 Room Air I&O- Last 24 Hours up to 6 AM 03/02/20 06:00 Intake Total 1550 ml Output Total 2050 ml Balance -500 ml Laboratory Data Labs 24H Laboratory Tests 2 03/01/20 16:23: Bedside Glucose (Misc Panel) 97 03/01/20 19:52: Bedside Glucose (Misc Panel) 124H 03/02/20 04:52: Bedside Glucose (Misc Panel) 94 FSBS Laboratory Tests Test 03/01/20 16:23 03/01/20 19:52 03/02/20 04:52 Range/Units Bedside Glucose (Misc Panel) 97 124 94 80-115 MG/DL Microbiology Microbiology 02/29/20 Blood Culture - Preliminary, Resulted No growth after 24 hours . All specim... 02/29/20 Blood Culture - Preliminary, Resulted No growth after 24 hours . All specim... Discharge Medications Scheduled Amlodipine Besylate (Amlodipine Besylate) 5 Mg Tab, 5 MG PO DAILY, (Reported) Amoxicillin/Potassium Clav (Augmentin 875-125 Tablet) 1 Each Tablet, 1 TAB PO BID Atorvastatin Calcium (Atorvastatin Calcium) 40 Mg Tablet, 40 MG PO DAILY, (Reported) Fluticasone Furoate (Arnuity Ellipta) 100 Mcg Blst.w.dev, 1 PUFF IN DAILY, (Reported) Metformin HCl (Metformin HCl) 500 Mg Tablet, 1,000 MG PO DAILY, (Reported) Pantoprazole Sodium (Pantoprazole Sodium) 40 Mg Tablet.dr, 40 MG PO DAILY, (Reported) Spironolact/Hydrochlorothiazid (Spironolactone-Hctz 25-25 Tab) 1 Ea Tab, 1 EA PO DAILY, (Reported) Scheduled PRN Albuterol Sulfate (Ventolin Hfa) 18 Gm Hfa.aer.ad, 2 PUFFS INH Q4H PRN for SHORTNESS OF BREATH, (Reported) Ibuprofen (Ibuprofen) 200 Mg Tablet, 600 MG PO BID PRN for PAIN / FEVER, (Reported) Allergies Coded Allergies: No Known Allergies (Unverified , 06/13/19) BRONSON PUGH MD Mar 02, 2020 12:34
== END 2020-03-02 12:28 | disposition home or self-care (01) | DRG 383 ==
LOC: M ED 20:24 → M ED INP 03-01 00:45 → ENRESERV 03-01 01:14 → M MS5PR 03-01 01:46
PROVIDERS: ADMIT Internal Medicine; ATTEND Internal Medicine
DX: L03.116 Cellulitis of left lower limb (principal); I10 Essential (primary) hypertension; E11.9 Type 2 diabetes mellitus without complications; E78.5 Hyperlipidemia, unspecified; M79.18 Myalgia, other site; K44.9 Diaphragmatic hernia without obstruction or gangrene; Z79.84 Long term (current) use of oral hypoglycemic drugs; Z79.899 Other long term (current) drug therapy

== ENCOUNTER → 2020-03-09 | Outpatient (REF) | payer OTHER ==
[~2020-03-09] MED LIST changes: +ARNU1INH IN; +AUGM875T28 PO; +CLIN300C5 PO; +PANT-23 PO; +VENTAER INH
[2020-03-09 15:34] LABS: BLOOD UREA NITROGEN 15 MG/DL (7-18); CALCIUM LEVEL 9.1 MG/DL (8.8-10.2); CARBON DIOXIDE LEVEL 35 MEQ/L (21-32); CHLORIDE LEVEL 102 MEQ/L (98-107); GLOMERULAR FILTRATION RATE > 60.0 (>45); GLUCOSE, FASTING 90 MG/DL (70-100); POTASSIUM SERUM 3.7 MEQ/L (3.5-5.1); SODIUM LEVEL 141 MEQ/L (136-145)
== END ==
LOC: M SFHCPLAZ 11:30
PROVIDERS: ATTEND Family Medicine
DX: E87.6 Hypokalemia (principal)

== ENCOUNTER → 2020-09-01 | Outpatient (REF) | payer OTHER ==
[~2020-09-01] MED LIST changes: +AMLO1TAB24; +AMLO1TAB24 PO; -AMLO5TAB6; -AMLO5TAB6 PO; -CLIN300C5 PO; +CLIN300C6 PO; -PANT20TA2; +PANT20TA6
== END ==
LOC: M SFHCPLAZ 10:58
PROVIDERS: ATTEND Family Medicine
DX: I10 Essential (primary) hypertension (principal); Z00.01 Encounter for general adult medical examination with abnormal findings; E78.5 Hyperlipidemia, unspecified; E66.01 Morbid (severe) obesity due to excess calories

== ENCOUNTER → 2020-09-21 | Outpatient (CLI) | payer OTHER ==
--- NOTE | 2020-09-21 14:39 | REPMRS ---
Patient History The patient states she has not had a clinical breast exam in over a year. Family history of breast cancer under age 50 in sister, breast cancer at age 50 or over in maternal aunt, breast cancer at age 50 or over in paternal aunt. 3D TOMOSYNTHESIS WAS PERFORMED. The Sara Triana lifetime risk for breast cancer is 19.6%. Volpara breast density a. Digital Woman Screen Mammo: September 21, 2020 - Exam #: [id number] Bilateral CC and MLO view(s) were taken. Technologist: Chloe Groves, Technologist Prior study comparison: April 25, 2019, bilateral digital woman screen mammo performed at [facility]. January 29, 2018, digital woman screen mammo performed at [facility]. FINDINGS: There are scattered fibroglandular densities. There has been no change in the appearance of the mammogram from the prior studies. There is a mild amount of residual fibroglandular tissue which is fairly symmetric. There is no interval development of dominant mass, architectural distortion, or clustered microcalcification suggestive of malignancy. Assessment: BI-RADS/ACR category 1 mammogram. Negative Mammogram. Recommendation Routine screening mammogram in 1 year (for women over age 40). This mammogram was interpreted with the aid of an FDA-approved computer-aided dectection system. Electronically Signed By: Watson Remy MD 09/21/20 [id number]
== END ==
LOC: M WHC 13:48
PROVIDERS: ATTEND Family Medicine
DX: Z12.31 Encounter for screening mammogram for malignant neoplasm of breast (principal); Z80.3 Family history of malignant neoplasm of breast

== ENCOUNTER → 2020-09-29 | Outpatient (CLI) | payer OTHER ==
[2020-09-29 09:13] LABS: HEMATOCRIT 41.6 % (36.0-47.0); HEMOGLOBIN 12.7 g/dl (12.0-15.5); MEAN CORPUSCULAR HEMOGLOBIN 27.4 pg (27.0-33.0); MEAN CORPUSCULAR HGB CONC 30.5 g/dl (32.0-36.5); MEAN CORPUSCULAR VOLUME 89.7 fl (80.0-96.0); PLATELET COUNT, AUTOMATED 342 10^3/uL (150-450); RED BLOOD COUNT 4.64 10^6/uL (4.00-5.40); WHITE BLOOD COUNT 7.1 10^3/uL (4.0-10.0)
[2020-09-29 09:39] LABS: ALBUMIN 3.5 GM/DL (3.2-5.2); ALT/SGPT 22 U/L (12-78); BILIRUBIN,TOTAL 0.5 MG/DL (0.2-1.0); BLOOD UREA NITROGEN 20 MG/DL (7-18); CALCIUM LEVEL 9.2 MG/DL (8.8-10.2); CARBON DIOXIDE LEVEL 33 MEQ/L (21-32); CHLORIDE LEVEL 99 MEQ/L (98-107); CHOLESTEROL LEVEL 157 MG/DL (<200); CHOLESTEROL RISK RATIO 1.987 (<5); CREATININE FOR GFR 0.94 MG/DL (0.55-1.30); GLOMERULAR FILTRATION RATE > 60.0 (>45); GLUCOSE, FASTING 96 MG/DL (70-100); HDL CHOLESTEROL 79 MG/DL (>40); LDL CHOLESTEROL 60 MG/DL (<100); NON-HDL-C 78 MG/DL; POTASSIUM SERUM 3.8 MEQ/L (3.5-5.1); SODIUM LEVEL 139 MEQ/L (136-145); TRIGLYCERIDES LEVEL 92 MG/DL (<150)
[2020-09-29 10:20] LABS: HEMOGLOBIN A1c 6.1 %
== END ==
LOC: M LAB 08:28
PROVIDERS: ATTEND Family Medicine
DX: I10 Essential (primary) hypertension (principal)

== ENCOUNTER → 2020-12-03 | Outpatient (CLI) | payer OTHER ==
[~2020-12-03] MED LIST changes: +ASPI-569 PO; -ASPI81TAEC PO
== END ==
LOC: M WHC 10:55
PROVIDERS: ATTEND Hospitalist
DX: R22.2 Localized swelling, mass and lump, trunk (principal)

== ENCOUNTER → 2021-04-29 | Outpatient (CLI) | payer OTHER ==
[~2021-04-29] MED LIST changes: +E-Z-GAS II EFFERVESCENT PACKET (SODIUM BICARB./CITRIC ACID/SIMETHICONE) As Ordered ONE; +E-Z-HD 98% w/w 340GM SUSP BTL As Ordered ONE; +E-Z-PAQUE 96% w/w SUSP 176GM BTL As Ordered ONE
--- NOTE | 2021-04-29 16:25 | REP ---
INDICATION: BARIATRIC SURGERY STATUS, HERNIA. COMPARISON: None. TECHNIQUE: The procedure was performed under the direct supervision of Dr. Ng. The images were reviewed with Dr. Ng. Liquid barium and gas producing crystals were given in the erect position as well as liquid barium in the prone oblique position in order to perform a double contrast upper GI examination. A combination of fluoroscopy, spot films and last image hold technology was utilized. 1.8 minutes of fluoro time was utilized for this procedure. FINDINGS: The steel burner film shows no organomegaly or pathological masses. The intestinal gas pattern is non-specific. The oral and pharyngeal stages of deglutition are unremarkable. Esophageal transport is prompt and efficient and there is no esophagitis, stricture or mucosal ring. There is a large hiatal hernia which encompasses the whole stomach which is inverted. The stomach boateng are normally outlined. The rugal folds are smooth and regular. There is no gastritis neoplasm or ulcer disease. The duodenum appears to lie below the diaphragm. The duodenal boateng are normally outlined. The mucosal folds are smooth and regular. There is no duodenitis pancreatitis peptic ulcer disease or neoplasm. The visualized portion of the proximal small bowel appears normal in course and caliber. IMPRESSION: There is a large hiatal hernia which encompasses the whole stomach. The stomach is inverted. <Electronically signed by Pablito Ayala > 04/29/21 [id number] <Electronically signed by Flavio Ng > 04/29/21 1622
== END ==
LOC: M RAD 08:13
PROVIDERS: ATTEND Surgery
DX: K44.9 Diaphragmatic hernia without obstruction or gangrene (principal); I87.2 Venous insufficiency (chronic) (peripheral); I51.89 Other ill-defined heart diseases; J45.40 Moderate persistent asthma, uncomplicated; G47.33 Obstructive sleep apnea (adult) (pediatric); G62.9 Polyneuropathy, unspecified; E66.01 Morbid (severe) obesity due to excess calories; Z68.43 Body mass index [BMI] 50.0-59.9, adult; Z98.84 Bariatric surgery status

== ENCOUNTER → 2021-06-17 | Outpatient (CLI) | payer OTHER ==
[~2021-06-17] MED LIST changes: -E-Z-GAS II EFFERVESCENT PACKET (SODIUM BICARB./CITRIC ACID/SIMETHICONE) As Ordered ONE; -E-Z-HD 98% w/w 340GM SUSP BTL As Ordered ONE; -E-Z-PAQUE 96% w/w SUSP 176GM BTL As Ordered ONE; +ERGO500029 PO; +IBUP200C25 PO
== END ==
LOC: M LABSMTC 09:48
PROVIDERS: ATTEND Anesthesiology
DX: Z01.818 Encounter for other preprocedural examination (principal); Z20.822 Contact with and (suspected) exposure to COVID-19

== ENCOUNTER 2021-06-21 07:03 | Day surgery (SDC) | payer OTHER ==
[~2021-06-21] VITALS: Ht 162.6 cm; Wt 127.9 kg
[~2021-06-21 07:03] MED LIST changes: +NS 1,000 ML IV ONE
[2021-06-21] MEDS ORDERED: propofoL 200 MG/20 ML VIAL As Ordered ONE (07:45)
[2021-06-21] MEDS ORDERED: LIDOCAINE 2% 100MG/5ML SDV (FOR ANES.) As Ordered ONE (07:45)
[2021-06-21] MEDS ORDERED: LABETALOL 100MG/20ML VIAL As Ordered ONE (08:38)
--- NOTE | 2021-06-21 08:53 | ROOR ---
Patient Name: Heidy Bolivar Procedure Date: 06/21/2021 8:19 AM Date of : 1960 Age: 61 Room: [facility] Gender: Female Note Status: Finalized Procedure: Colonoscopy Indications: Screening for colorectal malignant neoplasm Providers: Dom Valle MD Referring MD: Azeem Monahan MD Requesting Provider: Medicines: Monitored Anesthesia Care Complications: No immediate complications. Procedure: Pre-Anesthesia Assessment: - Prior to the procedure, a History and Physical was performed, and patient medications and allergies were reviewed. The patient is competent. The risks and benefits of the procedure and the sedation options and risks were discussed with the patient. All questions were answered and informed consent was obtained. Patient identification and proposed procedure were verified by the physician, the nurse and the machine tech in the endoscopy suite. Mental Status Examination: alert and oriented. Airway Examination: normal oropharyngeal airway and neck mobility. Respiratory Examination: clear to auscultation. CV Examination: normal. Prophylactic Antibiotics: The patient does not require prophylactic antibiotics. Prior Anticoagulants: The patient has taken no previous anticoagulant or antiplatelet agents. ASA Grade Assessment: III - A patient with severe systemic disease. After reviewing the risks and benefits, the patient was deemed in satisfactory condition to undergo the procedure. The anesthesia plan was to use monitored anesthesia care (MAC). Immediately prior to administration of medications, the patient was re-assessed for adequacy to receive sedatives. The heart rate, respiratory rate, oxygen saturations, blood pressure, adequacy of pulmonary ventilation, and response to care were monitored throughout the procedure. The physical status of the patient was re-assessed after the procedure. The Colonoscope was introduced through the anus and advanced to the cecum, identified by appendiceal orifice and ileocecal valve. The colonoscopy was performed without difficulty. The patient tolerated the procedure well. The quality of the bowel preparation was adequate to identify polyps. Findings: Hemorrhoids were found on perianal exam. There is no endoscopic evidence of erythema, inflammation, mass or polyps in the entire colon. Scattered small-mouthed diverticula were found in the sigmoid colon and descending colon. There was no evidence of diverticular bleeding. The retroflexed view of the distal rectum and anal verge was normal and showed no anal or rectal abnormalities. Impression: - Hemorrhoids found on perianal exam. - Mild diverticulosis in the sigmoid colon and in the descending colon. There was no evidence of diverticular bleeding. - The distal rectum and anal verge are normal on retroflexion view. - No specimens collected. Recommendation: - Discharge patient to home (ambulatory). - Repeat colonoscopy in 10 years for screening purposes. Procedure Code(s): --- Professional --- 22449, Colonoscopy, flexible; diagnostic, including collection of specimen(s) by brushing or washing, when performed (separate procedure) Diagnosis Code(s): --- Professional --- Z12.11, Encounter for screening for malignant neoplasm of colon K64.9, Unspecified hemorrhoids K57.30, Diverticulosis of large intestine without perforation or abscess without bleeding CPT copyright 2019 [employer]. All rights reserved. The codes documented in this report are preliminary and upon corporate manager review may be revised to meet current compliance requirements. Dom Valle MD Dom Valle MD 06/21/2021 8:53:15 AM Electronically signed by Dom Valle MD Number of Addenda: 0 Note Initiated On: 06/21/2021 8:19 AM Estimated Blood Loss: Estimated blood loss: none.
[2021-06-21 09:23] VITALS: BP 126/67
== END 2021-06-21 09:45 | disposition home or self-care (01) ==
LOC: M OPP 07:03
PROVIDERS: ATTEND Surgery
DX: Z12.11 Encounter for screening for malignant neoplasm of colon (principal); K57.30 Diverticulosis of large intestine without perforation or abscess without bleeding; K64.8 Other hemorrhoids; E11.9 Type 2 diabetes mellitus without complications; Z79.84 Long term (current) use of oral hypoglycemic drugs; Z79.899 Other long term (current) drug therapy

== ENCOUNTER → 2021-07-06 | Outpatient (REF) | payer MEDICARE ==
[~2021-07-06] MED LIST changes: +CLIN-250 PO; -CLIN300C6 PO; -NS 1,000 ML IV ONE
== END ==
LOC: M SFHCPLAZ 10:59
PROVIDERS: ATTEND Family Medicine
DX: E11.9 Type 2 diabetes mellitus without complications (principal)

== ENCOUNTER → 2021-07-21 | Outpatient (CLI) | payer MEDICARE ==
[2021-07-21 09:56] LABS: BLOOD UREA NITROGEN 17 MG/DL (7-18); CALCIUM LEVEL 9.4 MG/DL (8.8-10.2); CARBON DIOXIDE LEVEL 34 MEQ/L (21-32); CHLORIDE LEVEL 102 MEQ/L (98-107); CREATININE FOR GFR 0.85 MG/DL (0.55-1.30); GLOMERULAR FILTRATION RATE > 60.0 (>45); GLUCOSE, FASTING 86 MG/DL (70-100); POTASSIUM SERUM 4.2 MEQ/L (3.5-5.1); SODIUM LEVEL 139 MEQ/L (136-145)
== END ==
LOC: M LAB 08:59
PROVIDERS: ATTEND Registered Nurse
DX: E87.6 Hypokalemia (principal); I10 Essential (primary) hypertension; E66.01 Morbid (severe) obesity due to excess calories; E11.9 Type 2 diabetes mellitus without complications

== ENCOUNTER → 2021-07-21 | Outpatient (CLI) | payer MEDICARE ==
[2021-07-21 10:05] LABS: HEMOGLOBIN A1c 5.8 %
== END ==
LOC: M LAB 09:03
PROVIDERS: ATTEND Student in an Organized Health Care Education/Training Program
DX: E11.9 Type 2 diabetes mellitus without complications (principal)

== ENCOUNTER → 2021-12-05 | Outpatient (CLI) | payer MEDICARE, OTHER | LOC: M WHC 15:09 | PROVIDERS: ATTEND Student in an Organized Health Care Education/Training Program | DX: Z12.31 Encounter for screening mammogram for malignant neoplasm of breast (principal) ==

== ENCOUNTER → 2022-01-24 | Outpatient (REF) | payer MEDICARE | LOC: M SFHCPLAZ 13:39 | PROVIDERS: ATTEND Family Medicine | DX: I51.89 Other ill-defined heart diseases (principal) ==

== ENCOUNTER → 2022-02-09 | Outpatient (CLI) | payer MEDICARE ==
[2022-02-09 14:08] LABS: BLOOD UREA NITROGEN 27 MG/DL (7-18); CALCIUM LEVEL 9.7 MG/DL (8.8-10.2); CARBON DIOXIDE LEVEL 33 MEQ/L (21-32); CHLORIDE LEVEL 106 MEQ/L (98-107); CREATININE FOR GFR 0.81 MG/DL (0.55-1.30); GLOMERULAR FILTRATION RATE > 60.0 (>45); GLUCOSE, FASTING 91 MG/DL (70-100); POTASSIUM SERUM 3.4 MEQ/L (3.5-5.1); SODIUM LEVEL 144 MEQ/L (136-145)
== END ==
LOC: M LAB 13:02
PROVIDERS: ATTEND Student in an Organized Health Care Education/Training Program
DX: I51.89 Other ill-defined heart diseases (principal)

== ENCOUNTER 2022-02-23 15:37 | Emergency (ER) | payer MEDICARE ==
[~2022-02-23] VITALS: Ht 157.5 cm; Wt 135.9 kg
[2022-02-23 19:06] LABS: BASO # 0.1 10^3/uL (0.0-0.2); BASO % 0.6 % (0.0-1.0); EOS # 0.1 10^3/uL (0.0-0.5); HEMATOCRIT 43.8 % (36.0-47.0); HEMOGLOBIN 14.4 g/dl (12.0-15.5); LYMPH % 23.4 % (24.0-44.0); MEAN CORPUSCULAR HEMOGLOBIN 29.5 pg (27.0-33.0); MEAN CORPUSCULAR HGB CONC 32.9 g/dl (32.0-36.5); MEAN CORPUSCULAR VOLUME 89.8 fl (80.0-96.0); MONO # 0.7 10^3/uL (0.0-0.8); MONO % 7.9 % (2.0-8.0); NEUTROPHILS # 5.7 10^3/uL (1.5-8.5); NEUTROPHILS % 66.5 % (36.0-66.0); PLATELET COUNT, AUTOMATED 347 10^3/uL (150-450); RED BLOOD COUNT 4.88 10^6/uL (4.00-5.40); WHITE BLOOD COUNT 8.6 10^3/uL (4.0-10.0)
[2022-02-23 19:32] LABS: CK-MB VALUE MASS < 1.0 NG/ML (<3.6); CPK CREATINE PHOSPHOKINASE 133 U/L (26-192); MB/CK RELATIVE INDEX 0.75 (< OR =4)
[2022-02-23 19:45] LABS: ALBUMIN 3.7 GM/DL (3.2-5.2); BILIRUBIN,DIRECT 0.1 MG/DL (0.0-0.2); BILIRUBIN,TOTAL 0.3 MG/DL (0.2-1.0); CREATININE FOR GFR 1.08 MG/DL (0.55-1.30); FREE T4 1.03 NG/DL (0.76-1.46); GLOMERULAR FILTRATION RATE 54.5 (>45); POTASSIUM SERUM 4.4 MEQ/L (3.5-5.1); THYROID STIMULATING HORMONE 1.92 uIU/ML (0.358-3.740); TOTAL PROTEIN 7.3 GM/DL (6.4-8.2)
[2022-02-23] MEDS ORDERED: ISOVUE-370 76% 100ML VIAL As Ordered ONE (19:54)
[2022-02-23 21:05] LABS: MB/CK RELATIVE INDEX 0.93 (< OR =4)
[2022-02-23 22:20] VITALS: BP 141/60
== END 2022-02-23 22:23 | disposition home or self-care (01) ==
LOC: M ED 15:37
DX: K44.0 Diaphragmatic hernia with obstruction, without gangrene (principal); R94.31 Abnormal electrocardiogram [ECG] [EKG]; J98.11 Atelectasis; M81.0 Age-related osteoporosis without current pathological fracture; R91.8 Other nonspecific abnormal finding of lung field; E11.9 Type 2 diabetes mellitus without complications; I10 Essential (primary) hypertension; E78.5 Hyperlipidemia, unspecified; Z79.899 Other long term (current) drug therapy
CPT/HCPCS: 36415; 71045; 71275; 80048; 80076; 82550; 82553; 83690; 83880; 84439; 84443; 84484; 85025; 93005; 93041; 94760; 99285; G0463; Q9967

== ENCOUNTER → 2022-02-23 | Outpatient (REF) | payer MEDICARE | LOC: M SFHCPLAZ 14:10 | PROVIDERS: ATTEND Family Medicine | DX: E87.6 Hypokalemia (principal); R06.00 Dyspnea, unspecified ==

== ENCOUNTER → 2022-02-24 | Outpatient (CLI) | payer MEDICARE | LOC: M RAD 13:26 | PROVIDERS: ATTEND Student in an Organized Health Care Education/Training Program | DX: R06.00 Dyspnea, unspecified (principal); R60.9 Edema, unspecified ==

== ENCOUNTER → 2022-04-08 | Outpatient (CLI) | payer MEDICARE ==
[2022-04-08 09:14] LABS: BASO # 0.1 10^3/uL (0.0-0.2); EOS # 0.1 10^3/uL (0.0-0.5); EOS % 2.3 % (0.0-3.0); HEMATOCRIT 40.5 % (36.0-47.0); HEMOGLOBIN 12.7 g/dl (12.0-15.5); LYMPH # 1.6 10^3/uL (1.5-5.0); LYMPH % 32.9 % (24.0-44.0); MEAN CORPUSCULAR HEMOGLOBIN 29.1 pg (27.0-33.0); MEAN CORPUSCULAR HGB CONC 31.4 g/dl (32.0-36.5); MEAN CORPUSCULAR VOLUME 92.9 fl (80.0-96.0); MONO # 0.5 10^3/uL (0.0-0.8); MONO % 9.9 % (2.0-8.0); NEUTROPHILS # 2.6 10^3/uL (1.5-8.5); NEUTROPHILS % 53.3 % (36.0-66.0); PLATELET COUNT, AUTOMATED 311 10^3/uL (150-450); RED BLOOD COUNT 4.36 10^6/uL (4.00-5.40); WHITE BLOOD COUNT 4.8 10^3/uL (4.0-10.0)
[2022-04-08 09:48] LABS: HEMOGLOBIN A1c 5.7 %
[2022-04-08 10:21] LABS: ALBUMIN 3.4 GM/DL (3.2-5.2); ALT/SGPT 20 U/L (12-78); BILIRUBIN,TOTAL 0.5 MG/DL (0.2-1.0); BLOOD UREA NITROGEN 24 MG/DL (7-18); CALCIUM LEVEL 9.2 MG/DL (8.8-10.2); CARBON DIOXIDE LEVEL 30 MEQ/L (21-32); CHLORIDE LEVEL 106 MEQ/L (98-107); CHOLESTEROL LEVEL 156 MG/DL (<200); CHOLESTEROL RISK RATIO 2.136 (<5); CREATININE FOR GFR 0.85 MG/DL (0.55-1.30); FERRITIN 58 NG/ML (8-252); GLOMERULAR FILTRATION RATE > 60.0 (>45); GLUCOSE, FASTING 94 MG/DL (70-100); HDL CHOLESTEROL 73 MG/DL (>40); IRON (FE) 96 UG/DL (50-170); LDL CHOLESTEROL 65 MG/DL (<100); NON-HDL-C 83 MG/DL; PERCENT SATURATION 28.6 % (13.2-45.0); POTASSIUM SERUM 4.2 MEQ/L (3.5-5.1); SODIUM LEVEL 142 MEQ/L (136-145); TOTAL IRON BINDING CAPACITY 336 UG/DL (250-450); TOTAL PROTEIN 6.7 GM/DL (6.4-8.2); TRIGLYCERIDES LEVEL 88 MG/DL (<150)
[2022-04-10 11:29] LABS: VITAMIN B12 LEVEL 223 PG/ML (247-911)
[2022-04-10 11:30] LABS: FOLATE 8.8 NG/ML (>5.4)
== END ==
LOC: M LAB 08:24
PROVIDERS: ATTEND Physician Assistant
DX: E66.01 Morbid (severe) obesity due to excess calories (principal); Z79.899 Other long term (current) drug therapy

== ENCOUNTER 2022-07-23 01:41 | Inpatient (IN) | payer MEDICARE ==
[~2022-07-23] VITALS: Ht 152.4 cm; Wt 133.2 kg
[2022-07-23 02:37] LABS: BASO % 0.2 % (0.0-1.0); HEMATOCRIT 39.4 % (36.0-47.0); HEMOGLOBIN 13.2 g/dl (12.0-15.5); LYMPH # 0.8 10^3/uL (1.5-5.0); LYMPH % 8.6 % (24.0-44.0); MEAN CORPUSCULAR HEMOGLOBIN 29.5 pg (27.0-33.0); MEAN CORPUSCULAR HGB CONC 33.5 g/dl (32.0-36.5); MEAN CORPUSCULAR VOLUME 88.1 fl (80.0-96.0); MONO % 10.5 % (2.0-8.0); NEUTROPHILS # 7.7 10^3/uL (1.5-8.5); NEUTROPHILS % 80.3 % (36.0-66.0); PLATELET COUNT, AUTOMATED 245 10^3/uL (150-450); RED BLOOD COUNT 4.47 10^6/uL (4.00-5.40); WHITE BLOOD COUNT 9.6 10^3/uL (4.0-10.0)
[2022-07-23 03:23] LABS: RSV AMPLIFICATION NEGATIVE (NEGATIVE)
[2022-07-23 03:29] LABS: ALBUMIN 3.4 GM/DL (3.2-5.2); ALT/SGPT 22 U/L (12-78); BILIRUBIN,DIRECT 0.1 MG/DL (0.0-0.2); BILIRUBIN,TOTAL 0.3 MG/DL (0.2-1.0); BLOOD UREA NITROGEN 16 MG/DL (7-18); CALCIUM LEVEL 8.8 MG/DL (8.8-10.2); CARBON DIOXIDE LEVEL 24 MEQ/L (21-32); CHLORIDE LEVEL 100 MEQ/L (98-107); CK-MB VALUE MASS 1.3 NG/ML (<3.6); CREATININE FOR GFR 0.88 MG/DL (0.55-1.30); GLOMERULAR FILTRATION RATE > 60.0 (>45); GLUCOSE, FASTING 134 MG/DL (70-100); MB/CK RELATIVE INDEX 1.31 (< OR =4); NT-PRO BNP 48 PG/ML (<125); POTASSIUM SERUM 3.4 MEQ/L (3.5-5.1); SODIUM LEVEL 134 MEQ/L (136-145); TOTAL PROTEIN 6.8 GM/DL (6.4-8.2)
[2022-07-23] MEDS ORDERED: IPRATROPIUM 0.5MG/ALBUTEROL 2.5MG INH SOL UD 3ML (DUONEB) NEB ONE (05:20)
[2022-07-23] MEDS ORDERED: methylPREDNISolone 125MG 2ML VIAL IV ONE (05:50)
[2022-07-23] MEDS ORDERED: ISOVUE-370 76% 100ML VIAL As Ordered ONE (06:44)
[2022-07-23] MEDS ORDERED: guaiFENesin SYRUP 200MG 10ML UDC PO PRN (07:20)
[2022-07-23] MEDS ORDERED: GLUCOSE 4GM CHEW TABLET PO PRN (07:20)
[2022-07-23] MEDS ORDERED: DEXTROSE 50% 50 ML SYRINGE IV PRN (07:20)
[2022-07-23] MEDS ORDERED: LEVALBUTEROL HFA 45MCG/ACT 15 GM INHALER INH PRN (07:20)
[2022-07-23] MEDS ORDERED: GLUCAGON INJ 1MG VIAL SC PRN (07:20)
[2022-07-23] MEDS: COMBIVENT RESPIMAT 100-20MCG INHALER 4GM INH SCH ×3 (07:43→12:27)
[2022-07-23 07:48] VITALS: O2SAT 92
[2022-07-23 07:56] LABS: INR 0.96
[2022-07-23 07:57] LABS: PARTIAL THROMBOPLASTIN TIME 29.3 SECONDS (24.8-34.2)
[2022-07-23] MEDS: INSULIN LISPRO (NovoLOG) PER UNIT SC SCH ×4 (07:58→20:11)
[2022-07-23] MEDS ORDERED: IPRATROPIUM 0.5MG/ALBUTEROL 2.5MG INH SOL UD 3ML (DUONEB) NEB SCH (08:00)
[2022-07-23] MEDS ORDERED: POTASSIUM CHLORIDE 10MEQ SR TABLET PO ONE (08:00)
[2022-07-23 08:10] LABS: CK-MB VALUE MASS < 1.0 NG/ML (<3.6); CPK CREATINE PHOSPHOKINASE 105 U/L (26-192); MB/CK RELATIVE INDEX 0.95 (< OR =4)
[2022-07-23 08:20] LABS: FERRITIN 181 NG/ML (8-252); LDH LACTATE DEHYDROGENASE 315 U/L (84-246); MAGNESIUM LEVEL 1.9 MG/DL (1.8-2.4)
[2022-07-23] MEDS ORDERED: VITA100093 PO (08:22)
[2022-07-23] MEDS ORDERED: HOME MED LIST COMPLETE! XX SCH (08:25)
[2022-07-23] MEDS: amLODIPine 5 MG TAB PO SCH (10:39)
[2022-07-23] MEDS: cefTRIAXone SOD 1 GM in D5W MINI-BAG PLUS 50 ML IV SCH (10:40)
[2022-07-23] MEDS: ENOXAPARIN 40MG/0.4ML SYRINGE (J1650 PER 10MG) SC SCH ×2 (10:40→20:08)
[2022-07-23] MEDS: OSELTAMIVIR PHOSPHATE 75 MG CAP (TAMIFLU) PO SCH ×2 (10:40→20:07)
[2022-07-23] MEDS: DOXYCYCLINE HYCLATE 100MG TABLET PO SCH ×2 (10:40→20:07)
[2022-07-23] MEDS: BARICITINIB 2MG TABLET (OLUMIANT) FOR EUA PO SCH (11:34)
[2022-07-23] MEDS: CIPRODEX OTIC SUSP 7.5ML AS SCH ×2 (11:34→20:07)
[2022-07-23] MEDS: FLUTICASONE PROP 0.05% NASAL SPRAY 16 GM (FLONASE) NARES SCH ×2 (11:34→20:12)
[2022-07-23 12:00] LABS: ALBUMIN 3.3 GM/DL (3.2-5.2); ALT/SGPT 22 U/L (12-78); BILIRUBIN,DIRECT < 0.1 MG/DL (0.0-0.2); BILIRUBIN,TOTAL 0.3 MG/DL (0.2-1.0); TOTAL PROTEIN 6.8 GM/DL (6.4-8.2)
[2022-07-23] MEDS: IPRATROPIUM 0.5MG/ALBUTEROL 2.5MG INH SOL UD 3ML (DUONEB) NEB SCH ×3 (12:00→19:44)
[2022-07-23] MEDS: REMDESIVIR 200 MG in NS 250 ML IV ONE ×2 (12:21→17:29)
[2022-07-23] MEDS ORDERED: SODIUM CHLORIDE 0.9% INJ 10 ML SYR IV ONE (14:00)
[2022-07-23 14:08] VITALS: BP 160/80
[2022-07-23 16:00] VITALS: BP 147/91
[2022-07-23 20:00] VITALS: BP 139/73
[2022-07-23] MEDS: dexameTHASONE 4 MG/ML 1ML VIAL (J1100 PER 1MG) IV SCH (20:08)
[2022-07-24] VITALS: BP 137/70
[2022-07-24] MEDS: IPRATROPIUM 0.5MG/ALBUTEROL 2.5MG INH SOL UD 3ML (DUONEB) NEB SCH ×7 (00:01→23:40)
[2022-07-24 04:00] VITALS: BP 144/79
[2022-07-24 05:59] LABS: HEMATOCRIT 41.7 % (36.0-47.0); HEMOGLOBIN 13.5 g/dl (12.0-15.5); LYMPH # 0.7 10^3/uL (1.5-5.0); LYMPH % 10.5 % (24.0-44.0); MEAN CORPUSCULAR HEMOGLOBIN 29.4 pg (27.0-33.0); MEAN CORPUSCULAR HGB CONC 32.4 g/dl (32.0-36.5); MEAN CORPUSCULAR VOLUME 90.8 fl (80.0-96.0); MONO # 0.4 10^3/uL (0.0-0.8); MONO % 5.8 % (2.0-8.0); NEUTROPHILS # 5.8 10^3/uL (1.5-8.5); PLATELET COUNT, AUTOMATED 260 10^3/uL (150-450); RED BLOOD COUNT 4.59 10^6/uL (4.00-5.40); WHITE BLOOD COUNT 6.9 10^3/uL (4.0-10.0)
[2022-07-24 06:33] LABS: ALBUMIN 2.9 GM/DL (3.2-5.2); ALT/SGPT 21 U/L (12-78); BILIRUBIN,TOTAL 0.2 MG/DL (0.2-1.0); BLOOD UREA NITROGEN 15 MG/DL (7-18); CALCIUM LEVEL 9.1 MG/DL (8.8-10.2); CARBON DIOXIDE LEVEL 27 MEQ/L (21-32); CHLORIDE LEVEL 102 MEQ/L (98-107); CREATININE FOR GFR 0.78 MG/DL (0.55-1.30); GLOMERULAR FILTRATION RATE > 60.0 (>45); GLUCOSE, FASTING 183 MG/DL (70-100); MAGNESIUM LEVEL 2.1 MG/DL (1.8-2.4); POTASSIUM SERUM 3.7 MEQ/L (3.5-5.1); SODIUM LEVEL 136 MEQ/L (136-145); TOTAL PROTEIN 6.9 GM/DL (6.4-8.2)
[2022-07-24 07:54] VITALS: BP 155/88
[2022-07-24] MEDS: ENOXAPARIN 40MG/0.4ML SYRINGE (J1650 PER 10MG) SC SCH ×2 (08:49→22:07)
[2022-07-24] MEDS: INSULIN LISPRO (NovoLOG) PER UNIT SC SCH ×4 (08:49→21:00)
[2022-07-24] MEDS: cefTRIAXone SOD 1 GM in D5W MINI-BAG PLUS 50 ML IV SCH (08:50)
[2022-07-24] MEDS: dexameTHASONE 4 MG/ML 1ML VIAL (J1100 PER 1MG) IV SCH ×2 (08:50→22:08)
[2022-07-24] MEDS: OSELTAMIVIR PHOSPHATE 75 MG CAP (TAMIFLU) PO SCH ×2 (08:51→22:08)
[2022-07-24] MEDS: BARICITINIB 2MG TABLET (OLUMIANT) FOR EUA PO SCH (08:51)
[2022-07-24] MEDS: DOXYCYCLINE HYCLATE 100MG TABLET PO SCH (08:52)
[2022-07-24] MEDS: amLODIPine 5 MG TAB PO SCH (08:52)
[2022-07-24] MEDS: CIPRODEX OTIC SUSP 7.5ML AS SCH ×2 (08:52→22:07)
[2022-07-24] MEDS: FLUTICASONE PROP 0.05% NASAL SPRAY 16 GM (FLONASE) NARES SCH ×2 (08:53→22:09)
[2022-07-24] MEDS ORDERED: FUROSEMIDE 20MG/2ML VIAL (J1940) IV ONE (09:05)
[2022-07-24] MEDS ORDERED: ACETAMINOPHEN 500 MG TAB PO ONE (11:00)
[2022-07-24] MEDS: SPIRONOLACTONE 25 MG TAB PO SCH (11:20)
[2022-07-24] MEDS ORDERED: ONDANSETRON 4MG 2ML VIAL IV ONE (11:45)
[2022-07-24 12:05] VITALS: BP 138/69
[2022-07-24 15:57] VITALS: BP 141/79
[2022-07-24] MEDS: REMDESIVIR 100 MG in NS 250 ML IV SCH (17:51)
[2022-07-24] MEDS: SODIUM CHLORIDE 0.9% INJ 10 ML SYR IV SCH (19:47)
[2022-07-24 20:00] VITALS: BP 144/86
[2022-07-25] VITALS: BP 155/95
[2022-07-25 04:00] VITALS: BP 148/91
[2022-07-25] MEDS: IPRATROPIUM 0.5MG/ALBUTEROL 2.5MG INH SOL UD 3ML (DUONEB) NEB SCH ×5 (04:00→20:00)
[2022-07-25 07:12] LABS: HEMATOCRIT 42.2 % (36.0-47.0); HEMOGLOBIN 12.9 g/dl (12.0-15.5); MEAN CORPUSCULAR HEMOGLOBIN 28.5 pg (27.0-33.0); MEAN CORPUSCULAR HGB CONC 30.6 g/dl (32.0-36.5); MEAN CORPUSCULAR VOLUME 93.4 fl (80.0-96.0); PLATELET COUNT, AUTOMATED 315 10^3/uL (150-450); RED BLOOD COUNT 4.52 10^6/uL (4.00-5.40); WHITE BLOOD COUNT 6.3 10^3/uL (4.0-10.0)
[2022-07-25 08:00] VITALS: BP 164/66
[2022-07-25 08:17] LABS: C REACTIVE PROTEIN QUANTITATIV 6.02 MG/DL (0.00-0.30); MAGNESIUM LEVEL 2.4 MG/DL (1.8-2.4); PHOSPHORUS LEVEL 3.4 MG/DL (2.5-4.9)
[2022-07-25] MEDS: SPIRONOLACTONE 25 MG TAB PO SCH (08:31)
[2022-07-25] MEDS: ATORVASTATIN 20 MG TAB PO SCH (08:31)
[2022-07-25] MEDS: OSELTAMIVIR PHOSPHATE 75 MG CAP (TAMIFLU) PO SCH ×2 (08:31→20:37)
[2022-07-25] MEDS: ENOXAPARIN 40MG/0.4ML SYRINGE (J1650 PER 10MG) SC SCH ×2 (08:32→20:36)
[2022-07-25] MEDS: amLODIPine 5 MG TAB PO SCH (08:32)
[2022-07-25] MEDS: BARICITINIB 2MG TABLET (OLUMIANT) FOR EUA PO SCH (08:33)
[2022-07-25] MEDS: dexameTHASONE 4 MG/ML 1ML VIAL (J1100 PER 1MG) IV SCH ×2 (08:33→20:37)
[2022-07-25] MEDS: CIPRODEX OTIC SUSP 7.5ML AS SCH ×2 (08:34→20:37)
[2022-07-25] MEDS: FLUTICASONE PROP 0.05% NASAL SPRAY 16 GM (FLONASE) NARES SCH ×2 (08:36→20:37)
[2022-07-25 09:11] LABS: ATYPICAL LYMPH 3 % (0-5); LYMPHOCYTES 10 % (16-44); MONOCYTES 3 % (0-5); NEUTROPHILS 81 % (28-66)
[2022-07-25 09:13] LABS: HYPOCHROMASIA 1+
[2022-07-25 09:14] LABS: PLATELET ESTIMATE NORMAL (NORMAL); POLYCHROMASIA 1+
[2022-07-25] MEDS: INSULIN LISPRO (NovoLOG) PER UNIT SC SCH ×4 (09:29→20:29)
[2022-07-25] MEDS ORDERED: FUROSEMIDE 20 MG TAB PO ONE (10:10)
[2022-07-25 11:34] VITALS: BP 156/72
[2022-07-25 15:38] VITALS: BP 138/75
[2022-07-25] MEDS: REMDESIVIR 100 MG in NS 250 ML IV SCH (15:54)
[2022-07-25] MEDS: SODIUM CHLORIDE 0.9% INJ 10 ML SYR IV SCH (17:10)
[2022-07-25 20:00] VITALS: BP 146/87
[2022-07-26] VITALS: BP 131/67
[2022-07-26 04:00] VITALS: BP 149/81
[2022-07-26] MEDS: IPRATROPIUM 0.5MG/ALBUTEROL 2.5MG INH SOL UD 3ML (DUONEB) NEB SCH ×5 (04:00→15:19)
[2022-07-26 06:04] LABS: BASO % 0.3 % (0.0-1.0); HEMATOCRIT 40.1 % (36.0-47.0); HEMOGLOBIN 12.9 g/dl (12.0-15.5); LYMPH # 0.7 10^3/uL (1.5-5.0); LYMPH % 12.4 % (24.0-44.0); MEAN CORPUSCULAR HEMOGLOBIN 29.1 pg (27.0-33.0); MEAN CORPUSCULAR HGB CONC 32.2 g/dl (32.0-36.5); MEAN CORPUSCULAR VOLUME 90.3 fl (80.0-96.0); MONO # 0.5 10^3/uL (0.0-0.8); MONO % 8.6 % (2.0-8.0); NEUTROPHILS # 4.6 10^3/uL (1.5-8.5); PLATELET COUNT, AUTOMATED 377 10^3/uL (150-450); RED BLOOD COUNT 4.44 10^6/uL (4.00-5.40); WHITE BLOOD COUNT 5.9 10^3/uL (4.0-10.0)
[2022-07-26 06:43] LABS: ALT/SGPT 26 U/L (12-78); BILIRUBIN,TOTAL 0.3 MG/DL (0.2-1.0); BLOOD UREA NITROGEN 30 MG/DL (7-18); CALCIUM LEVEL 8.8 MG/DL (8.8-10.2); CARBON DIOXIDE LEVEL 28 MEQ/L (21-32); CHLORIDE LEVEL 101 MEQ/L (98-107); CREATININE FOR GFR 0.72 MG/DL (0.55-1.30); GLOMERULAR FILTRATION RATE > 60.0 (>45); GLUCOSE, FASTING 176 MG/DL (70-100); MAGNESIUM LEVEL 2.4 MG/DL (1.8-2.4); POTASSIUM SERUM 4.4 MEQ/L (3.5-5.1); SODIUM LEVEL 138 MEQ/L (136-145); TOTAL PROTEIN 6.6 GM/DL (6.4-8.2)
[2022-07-26 08:06] VITALS: BP 134/63
[2022-07-26] MEDS: CIPRODEX OTIC SUSP 7.5ML AS SCH (09:00)
[2022-07-26] MEDS: FLUTICASONE PROP 0.05% NASAL SPRAY 16 GM (FLONASE) NARES SCH (09:00)
[2022-07-26] MEDS: INSULIN LISPRO (NovoLOG) PER UNIT SC SCH ×3 (09:50→17:31)
[2022-07-26] MEDS: dexameTHASONE 4 MG/ML 1ML VIAL (J1100 PER 1MG) IV SCH ×2 (09:50→17:22)
[2022-07-26] MEDS: BARICITINIB 2MG TABLET (OLUMIANT) FOR EUA PO SCH (09:51)
[2022-07-26] MEDS: ATORVASTATIN 20 MG TAB PO SCH (09:51)
[2022-07-26 09:52] VITALS: BP 134/63
[2022-07-26] MEDS: SPIRONOLACTONE 25 MG TAB PO SCH (09:52)
[2022-07-26] MEDS: OSELTAMIVIR PHOSPHATE 75 MG CAP (TAMIFLU) PO SCH (09:52)
[2022-07-26] MEDS: amLODIPine 5 MG TAB PO SCH (09:52)
[2022-07-26] MEDS: ENOXAPARIN 40MG/0.4ML SYRINGE (J1650 PER 10MG) SC SCH (09:53)
[2022-07-26 12:46] VITALS: BP 146/81
[2022-07-26] MEDS ORDERED: OSEL75CA2 PO (13:30)
[2022-07-26] MEDS ORDERED: DEXA4TA PO (13:30)
[2022-07-26] MEDS ORDERED: VENTAER INH (13:30)
[2022-07-26 16:00] VITALS: BP 132/70
[2022-07-26] MEDS: REMDESIVIR 100 MG in NS 250 ML IV SCH (17:22)
== END 2022-07-26 19:48 | disposition home or self-care (01) | DRG 177 ==
LOC: M ED 01:41 → M ED INP 07:16 → ENRESERV 13:32 → M PCU 14:08 → ENRESERV 16:02
PROVIDERS: ADMIT Internal Medicine; ATTEND Family Medicine
DX: U07.1 COVID-19 (principal); J96.01 Acute respiratory failure with hypoxia; E66.2 Morbid (severe) obesity with alveolar hypoventilation; Z68.43 Body mass index [BMI] 50.0-59.9, adult; J10.1 Influenza due to other identified influenza virus with other respiratory manifestations; I10 Essential (primary) hypertension; E78.5 Hyperlipidemia, unspecified; R73.03 Prediabetes; L92.0 Granuloma annulare; H72.92 Unspecified perforation of tympanic membrane, left ear; E87.6 Hypokalemia; Z79.84 Long term (current) use of oral hypoglycemic drugs; Z79.899 Other long term (current) drug therapy

== ENCOUNTER → 2022-09-20 | Outpatient (CLI) | payer MEDICARE ==
[~2022-09-20] MED LIST changes: +DEXA4TA PO; +OSEL75CA2 PO; +VITA100093 PO
== END ==
LOC: M RAD 14:34
PROVIDERS: ATTEND Student in an Organized Health Care Education/Training Program
DX: M79.89 Other specified soft tissue disorders (principal)

== ENCOUNTER 2023-01-25 18:43 | Emergency (ER) | payer MEDICARE ==
[2023-01-25 19:18] LABS: BASO % 0.6 % (0.0-1.0); EOS # 0.1 10^3/uL (0.0-0.5); EOS % 1.2 % (0.0-3.0); HEMOGLOBIN 12.4 g/dl (12.0-15.5); LYMPH # 1.8 10^3/uL (1.5-5.0); LYMPH % 24.4 % (24.0-44.0); MEAN CORPUSCULAR HEMOGLOBIN 29.1 pg (27.0-33.0); MEAN CORPUSCULAR HGB CONC 31.8 g/dl (32.0-36.5); MEAN CORPUSCULAR VOLUME 91.5 fl (80.0-96.0); MONO # 0.8 10^3/uL (0.0-0.8); MONO % 11.7 % (2.0-8.0); NEUTROPHILS # 4.5 10^3/uL (1.5-8.5); NEUTROPHILS % 61.7 % (36.0-66.0); PLATELET COUNT, AUTOMATED 384 10^3/uL (150-450); RED BLOOD COUNT 4.26 10^6/uL (4.00-5.40); WHITE BLOOD COUNT 7.2 10^3/uL (4.0-10.0)
[2023-01-25 19:45] LABS: LIPASE 24 U/L (12-53)
[2023-01-25 19:47] LABS: ALBUMIN 2.8 G/DL (3.2-5.2); ALKALINE PHOSPHATASE 84 U/L (46-116); ALT/SGPT 26 U/L (7.0-40); AST/SGOT 16 U/L (<34); BILIRUBIN,DIRECT 0.1 MG/DL (<0.4); BILIRUBIN,TOTAL 0.3 MG/DL (0.3-1.2); BLOOD UREA NITROGEN 17 MG/DL (9-23); CALCIUM LEVEL 8.8 MG/DL (8.3-10.6); CARBON DIOXIDE LEVEL 26 MMOL/L (20-31); CHLORIDE LEVEL 106 MMOL/L (98-107); CREATININE FOR GFR 0.72 MG/DL (0.55-1.30); GLOMERULAR FILTRATION RATE > 60.0 (>45); GLUCOSE, FASTING 101 MG/DL (74-106); POTASSIUM SERUM 3.7 MMOL/L (3.5-5.1); SODIUM LEVEL 142 MMOL/L (136-145); TOTAL PROTEIN 5.9 G/DL (5.7-8.2)
[2023-01-25] MEDS ORDERED: NS 1,000 ML IV ONE (20:15)
[2023-01-25] MEDS ORDERED: ISOVUE-370 76% 100ML VIAL As Ordered ONE (20:25)
[2023-01-25 21:18] LABS: CK-MB VALUE MASS < 1.0 NG/ML (<3.6)
[2023-01-25 21:22] LABS: CPK CREATINE PHOSPHOKINASE 27 U/L (34-145)
[2023-01-26 01:35] VITALS: BP 112/69
== END 2023-01-26 01:45 | disposition short-term general hospital (02) ==
LOC: M ED 18:43
DX: T81.9XXA Unspecified complication of procedure, initial encounter (principal); R11.2 Nausea with vomiting, unspecified; E11.9 Type 2 diabetes mellitus without complications; I10 Essential (primary) hypertension; E78.5 Hyperlipidemia, unspecified; R51.9 Headache, unspecified; J45.909 Unspecified asthma, uncomplicated; G47.33 Obstructive sleep apnea (adult) (pediatric); Z79.84 Long term (current) use of oral hypoglycemic drugs; Z79.899 Other long term (current) drug therapy; Z79.51 Long term (current) use of inhaled steroids
CPT/HCPCS: 36415; 74177; 80048; 80076; 81001; 82550; 82553; 83605; 83690; 84484; 85025; 87086; 93005; 99284; Q9967

== ENCOUNTER → 2023-04-19 | Outpatient (CLI) | payer MEDICARE | LOC: M WHC 07:42 | PROVIDERS: ATTEND Nurse Practitioner Family | DX: Z12.31 Encounter for screening mammogram for malignant neoplasm of breast (principal) ==

== ENCOUNTER → 2023-04-19 | Outpatient (REF) | payer MEDICARE | LOC: M SFHCWAGY 17:42 | PROVIDERS: ATTEND Nurse Practitioner Family | DX: R87.615 Unsatisfactory cytologic smear of cervix (principal); R89.6 Abnormal cytological findings in specimens from other organs, systems and tissues | CPT/HCPCS: 87624; G0123 ==

== ENCOUNTER 2023-04-24 07:52 | Emergency (ER) | payer MEDICARE ==
[~2023-04-24] VITALS: Ht 154.9 cm; Wt 127.6 kg
[2023-04-24 07:53] VITALS: BP 147/73; TEMP 97.7; O2SAT 96
== END 2023-04-24 08:10 | disposition left against medical advice (07) ==
LOC: M ED 07:52
DX: Z53.21 Procedure and treatment not carried out due to patient leaving prior to being seen by health care provider (principal)

== ENCOUNTER → 2023-05-10 | Outpatient (CLI) | payer MEDICARE ==
[2023-05-10 18:10] LABS: BASO % 0.5 % (0.0-1.0); EOS # 0.1 10^3/uL (0.0-0.5); EOS % 2.2 % (0.0-3.0); HEMATOCRIT 38.8 % (36.0-47.0); LYMPH # 1.7 10^3/uL (1.5-5.0); LYMPH % 27.4 % (24.0-44.0); MEAN CORPUSCULAR HEMOGLOBIN 29.5 pg (27.0-33.0); MEAN CORPUSCULAR HGB CONC 30.9 g/dl (32.0-36.5); MEAN CORPUSCULAR VOLUME 95.3 fl (80.0-96.0); MONO # 0.5 10^3/uL (0.0-0.8); MONO % 7.7 % (2.0-8.0); NEUTROPHILS # 3.8 10^3/uL (1.5-8.5); NEUTROPHILS % 61.7 % (36.0-66.0); PLATELET COUNT, AUTOMATED 349 10^3/uL (150-450); RED BLOOD COUNT 4.07 10^6/uL (4.00-5.40); WHITE BLOOD COUNT 6.2 10^3/uL (4.0-10.0)
[2023-05-10 18:21] LABS: INR 0.95; PROTHROMBIN TIME 12.4 SECONDS (12.5-14.5)
[2023-05-10 18:41] LABS: BLOOD UREA NITROGEN 19 MG/DL (9-23); CALCIUM LEVEL 9.3 MG/DL (8.3-10.6); CARBON DIOXIDE LEVEL 29 MMOL/L (20-31); CHLORIDE LEVEL 104 MMOL/L (98-107); CREATININE FOR GFR 0.84 MG/DL (0.55-1.30); GLOMERULAR FILTRATION RATE > 60.0 (>45); GLUCOSE, FASTING 101 MG/DL (74-106); POTASSIUM SERUM 3.9 MMOL/L (3.5-5.1); SODIUM LEVEL 141 MMOL/L (136-145)
== END ==
LOC: M PLALAB 15:59
PROVIDERS: ATTEND Student in an Organized Health Care Education/Training Program
DX: I10 Essential (primary) hypertension (principal); W19.XXXA Unspecified fall, initial encounter; R60.9 Edema, unspecified

== ENCOUNTER → 2023-05-10 | Outpatient (CLI) | payer MEDICARE ==
[2023-05-10 18:09] LABS: HEMOGLOBIN 11.6 g/dl (12.0-15.5); MEAN CORPUSCULAR HEMOGLOBIN 28.4 pg (27.0-33.0); MEAN CORPUSCULAR HGB CONC 31.4 g/dl (32.0-36.5); MEAN CORPUSCULAR VOLUME 90.7 fl (80.0-96.0); PLATELET COUNT, AUTOMATED 356 10^3/uL (150-450); RED BLOOD COUNT 4.08 10^6/uL (4.00-5.40); WHITE BLOOD COUNT 6.6 10^3/uL (4.0-10.0)
[2023-05-10 18:32] LABS: INR 1.01
[2023-05-10 18:44] LABS: BLOOD UREA NITROGEN 18 MG/DL (9-23); CALCIUM LEVEL 9.2 MG/DL (8.3-10.6); CARBON DIOXIDE LEVEL 28 MMOL/L (20-31); CHLORIDE LEVEL 105 MMOL/L (98-107); CREATININE FOR GFR 0.82 MG/DL (0.55-1.30); GLOMERULAR FILTRATION RATE > 60.0 (>45); GLUCOSE, FASTING 106 MG/DL (74-106); POTASSIUM SERUM 4.1 MMOL/L (3.5-5.1); SODIUM LEVEL 142 MMOL/L (136-145)
== END ==
LOC: M PLALAB 15:56
PROVIDERS: ATTEND Physician Assistant
DX: Z79.899 Other long term (current) drug therapy (principal); E66.01 Morbid (severe) obesity due to excess calories; R60.9 Edema, unspecified

== ENCOUNTER → 2023-05-15 | Outpatient (CLI) | payer MEDICARE | LOC: M RAD 06:22 | PROVIDERS: ATTEND Student in an Organized Health Care Education/Training Program | DX: S00.93XA Contusion of unspecified part of head, initial encounter (principal); M25.562 Pain in left knee; W19.XXXA Unspecified fall, initial encounter; Y93.9 Activity, unspecified; Y92.9 Unspecified place or not applicable ==

== ENCOUNTER → 2023-06-06 | Outpatient (REF) | payer MEDICARE | LOC: M SFHCPLAZ 10:59 | PROVIDERS: ATTEND Student in an Organized Health Care Education/Training Program | DX: Z98.84 Bariatric surgery status (principal) ==

== ENCOUNTER → 2023-06-06 | Outpatient (CLI) | payer MEDICARE ==
[2023-06-06 12:35] LABS: HEMATOCRIT 39.4 % (36.0-47.0); HEMOGLOBIN 12.4 g/dl (12.0-15.5); MEAN CORPUSCULAR HEMOGLOBIN 28.6 pg (27.0-33.0); MEAN CORPUSCULAR HGB CONC 31.5 g/dl (32.0-36.5); MEAN CORPUSCULAR VOLUME 90.8 fl (80.0-96.0); PLATELET COUNT, AUTOMATED 388 10^3/uL (150-450); RED BLOOD COUNT 4.34 10^6/uL (4.00-5.40); WHITE BLOOD COUNT 8.7 10^3/uL (4.0-10.0)
[2023-06-06 12:59] LABS: BLOOD UREA NITROGEN 27 MG/DL (9-23); CALCIUM LEVEL 9.3 MG/DL (8.3-10.6); CARBON DIOXIDE LEVEL 30 MMOL/L (20-31); CHLORIDE LEVEL 104 MMOL/L (98-107); CREATININE FOR GFR 0.78 MG/DL (0.55-1.30); GLOMERULAR FILTRATION RATE > 60.0 (>45); GLUCOSE, FASTING 99 MG/DL (74-106); POTASSIUM SERUM 3.5 MMOL/L (3.5-5.1); SODIUM LEVEL 144 MMOL/L (136-145)
== END ==
LOC: M RAD 11:51
PROVIDERS: ATTEND Student in an Organized Health Care Education/Training Program
DX: R51.9 Headache, unspecified (principal); W19.XXXD Unspecified fall, subsequent encounter; Z98.84 Bariatric surgery status

== ENCOUNTER → 2024-01-24 | Outpatient (CLI) | payer MEDICARE, OTHER ==
[2024-01-24 09:34] LABS: HEMATOCRIT 37.6 % (36.0-47.0); HEMOGLOBIN 12.1 g/dl (12.0-15.5); MEAN CORPUSCULAR HEMOGLOBIN 29.7 pg (27.0-33.0); MEAN CORPUSCULAR HGB CONC 32.2 g/dl (32.0-36.5); MEAN CORPUSCULAR VOLUME 92.2 fl (80.0-96.0); PLATELET COUNT, AUTOMATED 335 10^3/uL (150-450); RED BLOOD COUNT 4.08 10^6/uL (4.00-5.40); WHITE BLOOD COUNT 4.9 10^3/uL (4.0-10.0)
[2024-01-24 09:45] LABS: HEMOGLOBIN A1c 5.1 % (4.0-6.0)
[2024-01-24 09:55] LABS: ALBUMIN 3.2 G/DL (3.2-5.2); ALKALINE PHOSPHATASE 108 U/L (46-116); ALT/SGPT 43 U/L (7.0-40); AST/SGOT 24 U/L (<34); BILIRUBIN,TOTAL 0.4 MG/DL (0.3-1.2); BLOOD UREA NITROGEN 20 MG/DL (9-23); CALCIUM LEVEL 8.9 MG/DL (8.3-10.6); CARBON DIOXIDE LEVEL 28 MMOL/L (20-31); CHLORIDE LEVEL 109 MMOL/L (98-107); CHOLESTEROL LEVEL 145 MG/DL (<200); CHOLESTEROL RISK RATIO 2.25 (<5); CREATININE FOR GFR 0.82 MG/DL (0.55-1.30); GLOMERULAR FILTRATION RATE > 60.0 (>45); GLUCOSE, FASTING 89 MG/DL (74-106); HDL CHOLESTEROL 64.2 MG/DL (>40); LDL CHOLESTEROL 58.8 MG/DL (<100); NON-HDL-C 80.8 MG/DL; POTASSIUM SERUM 4.1 MMOL/L (3.5-5.1); SODIUM LEVEL 142 MMOL/L (136-145); TOTAL PROTEIN 6.1 G/DL (5.7-8.2); TRIGLYCERIDES LEVEL 110 MG/DL (<150)
[2024-01-24 09:56] LABS: TOTAL 25(OH) VITAMIN D 19.4 NG/ML (20.0-100.0)
[2024-01-24 09:57] LABS: VITAMIN B12 LEVEL 157 PG/ML (211-911)
[2024-01-24 10:06] LABS: FOLATE 13.8 NG/ML (>5.4)
== END ==
LOC: M LAB 08:03
PROVIDERS: ATTEND Student in an Organized Health Care Education/Training Program
DX: R73.03 Prediabetes (principal); Z98.84 Bariatric surgery status; Z13.220 Encounter for screening for lipoid disorders; E55.9 Vitamin D deficiency, unspecified

== ENCOUNTER → 2025-07-22 | Outpatient (REF) | payer MEDICARE ==
[~2025-07-22] MED LIST changes: +ONDA-282 PO; -ONDA4TAB6 PO
== END ==
LOC: M SFHCPLAZ 19:55
PROVIDERS: ATTEND Family Medicine
DX: E78.5 Hyperlipidemia, unspecified (principal); E55.9 Vitamin D deficiency, unspecified; Z98.84 Bariatric surgery status; I10 Essential (primary) hypertension; R73.09 Other abnormal glucose

== ENCOUNTER → 2025-08-06 | Outpatient (CLI) | payer MEDICARE ==
[2025-08-06 10:47] LABS: PLATELET COUNT, AUTOMATED 370 10^3/uL (150-450)
[2025-08-06 10:59] LABS: ESTIMATED AVERAGE GLUCOSE 114.0 MG/DL (60-110)
[2025-08-06 11:15] LABS: ALT/SGPT 50.0 U/L (7.0-40); AST/SGOT 35.0 U/L (<34); CALCIUM LEVEL 8.6 MG/DL (8.3-10.6); CARBON DIOXIDE LEVEL 29.0 MMOL/L (20-31); CHLORIDE LEVEL 106.0 MMOL/L (98-107); CHOLESTEROL LEVEL 136.0 MG/DL (<200); CHOLESTEROL RISK RATIO 1.86 (<5); CREATININE FOR GFR 0.74 MG/DL (0.55-1.30); GLOMERULAR FILTRATION RATE 88.6 (>45); IRON (FE) 66.0 UG/DL (50-170); LDL CHOLESTEROL 50.7 MG/DL (<100); NON-HDL-C 63.1 MG/DL; POTASSIUM SERUM 3.9 MMOL/L (3.5-5.1); SODIUM LEVEL 142.0 MMOL/L (136-145); TRIGLYCERIDES LEVEL 62.0 MG/DL (<150)
[2025-08-06 11:17] LABS: TOTAL 25(OH) VITAMIN D 16.1 NG/ML (20.0-100.0); VITAMIN B12 LEVEL 174.0 PG/ML (211-911)
== END ==
LOC: M PLALAB 08:46
DX: E78.5 Hyperlipidemia, unspecified (principal); E55.9 Vitamin D deficiency, unspecified; Z98.84 Bariatric surgery status; I10 Essential (primary) hypertension; R73.09 Other abnormal glucose